=== PATIENT | female | born 1985 | race Caucasian/White ===

== ENCOUNTER 2017-06-09 11:09 | Emergency (ER) | payer OTHER ==
[~2017-06-09] VITALS: Ht 157.4 cm; Wt 104.3 kg
[~2017-06-09 11:09] MED LIST: ATIVAN1 MG PO; BACTRIM DS 8001 TA1 PO; BIRTH CONTROL PILLS; BIRTH CONTROL1 EAC1; BUSPAR5 MG PO; CIPROFLOXACIN500 MG PO; CLEOCIN150 MG PO; CLINDAMYCIN HC300 MG PO; DEBROX15 ML OT; EES400 MG PO; EFFEXOR75 MG PO; FLONASE ALLERG9.9 ML NS; HYDROCODONE BIT1 T11 PO; IBU-8800 MG PO; IBU800 M1 PO; KETOROLAC10 MG PO; LATU40TA PO; LOMOTIL 0.025 M1 TA1 PO; MOTRIN,RUFEN800 MG PO; MULTIVITAMIN1 TA1 PO; Motrin,Rufen800 MG PO; NAPROSYN500 MG PO; NKHM; PHENERGAN25 M1 PO; POLYTRIM 1000010 ML OPH; PRENATAL1 TA3 PO; PRENAVITE1 TA4 PO; PROTONIX40 MG PO; PROZAC10 MG PO; PROZAC20 MG PO; PROZAC40 M1 PO; Peridex 473 ML473 ML PO; REMERON15 M2 PO; SEROQUEL300 MG PO; TORADOL10 MG PO; TRAMADOL HCL50 MG PO; TRAZODONE HYDR300 MG PO; TRAZODONE50 MG PO; ULTRAM50 MG PO; VISTARIL25 MG PO; VISTARIL50 MG PO; ZANAFLEX4 M2 PO; ZITHROMAX250 MG PO; ZOFRAN ODT4 MG SL; ZOFRAN4 MG PO; ZOLOFT25 MG PO; ZOLOFT50 MG PO
[2017-06-09 12:02] LABS: BILIRUBIN NEGATIVE (NEGATIVE); BLOOD NEGATIVE (NEGATIVE); CLARITY CLEAR (CLEAR); COLOR YELLOW (YELLOW); GLUCOSE NEGATIVE (NEGATIVE); KETONE NEGATIVE (NEGATIVE); LEUKO ESTERASE NEGATIVE (NEGATIVE); NITRITE NEGATIVE (NEGATIVE); SPECIFIC GRAVITY 1.015 (1.005-1.030); UROBILINOGEN 0.2 E.U./dl (0.2-1.0)
[2017-06-09 12:14] LABS: URINE AMPHETAMINES < 1000 (1000ng/ml); URINE BARBITURATES < 200 (200ng/ml); URINE BENZODIAZEPINES < 200 (200ng/ml); URINE CANNABINOIDS (THC) < 50 (50ng/ml); URINE COCAINE < 300 (300ng/ml); URINE METHADONE < 300 (300ng/ml); URINE OPIATES < 300 (300ng/ml); URINE PHENCYCLIDINE < 25 (25ng/ml)
[2017-06-09] MEDS ORDERED: ATARAX,VISTARIL50 MG PO (12:49)
== END 2017-06-09 13:10 | disposition home or self-care (01) ==
LOC: ED 11:09
PROVIDERS: Emergency Medicine
DX: F41.9 Anxiety disorder, unspecified (principal); R45.1 Restlessness and agitation; R07.89 Other chest pain; J45.909 Unspecified asthma, uncomplicated; F17.200 Nicotine dependence, unspecified, uncomplicated; Z88.0 Allergy status to penicillin; Z88.8 Allergy status to other drugs, medicaments and biological substances; Z79.899 Other long term (current) drug therapy

== ENCOUNTER 2017-07-17 06:46 | Emergency (ER) | payer OTHER ==
[~2017-07-17] VITALS: Ht 157.4 cm; Wt 108.9 kg
[~2017-07-17 06:46] MED LIST changes: +ATARAX,VISTARIL50 MG PO
[2017-07-17 07:27] LABS: BASO % 0.2 % (0.0-1.0); EOS # 0.2 10*3/uL (0.0-0.4); EOS % 1.9 % (1.0-4.0); HEMATOCRIT 38.1 % (37.0-47.0); HEMOGLOBIN 12.5 g/dl (12.0-16.0); LYMPH # 3.6 10*3/uL (1.3-4.4); LYMPH % 29.1 % (27.0-41.0); MEAN CELL VOLUME 87.2 fl (81.0-99.0); MEAN CORPUSCULAR HGB 28.6 pg (27.0-31.0); MEAN CORPUSCULAR HGB CONC 32.8 g/dl (33.0-37.0); MEAN PLATELET VOLUME 9.6 fl (9.6-12.3); MONO # 0.5 10*3/uL (0.1-1.0); MONO % 4.3 % (3.0-9.0); NEUT # 7.8 10*3/uL (2.3-7.9); NEUT % 64.1 % (47.0-73.0); PLATELET COUNT AUTOMATED 330 10*3/uL (130-400); RED BLOOD COUNT 4.37 10*6/uL (4.10-5.10); RED CELL DISTRI WIDTH 13.1 % (0-14.5); WHITE BLOOD COUNT 12.2 10*3/uL (4.8-10.8)
[2017-07-17 07:44] LABS: ALBUMIN 3.7 gm/dl (3.1-4.5); ALKALINE PHOSPHATASE 67 U/L (45-117); BUN 10 mg/dl (7-24); CHLORIDE 103 mmol/L (98-107); CREATININE 0.55 mg/dL (0.55-1.02); POTASSIUM 3.8 mmol/L (3.5-5.1); SGOT/AST 24 IU/L (3-35); SGPT/ALT 40 U/L (12-78); SODIUM 140 mmol/L (136-145); TOTAL PROTEIN 7.4 gm/dL (6.4-8.2)
[2017-07-17] MEDS ORDERED: ZOFRAN ODT4 MG SL (10:17)
== END 2017-07-17 10:20 | disposition home or self-care (01) ==
LOC: ED 06:46
PROVIDERS: Emergency Medicine
DX: K52.9 Noninfective gastroenteritis and colitis, unspecified (principal); F17.200 Nicotine dependence, unspecified, uncomplicated; Z88.0 Allergy status to penicillin; Z79.899 Other long term (current) drug therapy

== ENCOUNTER 2017-10-07 14:27 | Emergency (ER) | payer OTHER ==
[~2017-10-07] VITALS: Ht 157.4 cm; Wt 117.9 kg
== END 2017-10-07 16:45 | disposition left against medical advice (07) ==
LOC: ED 14:27
DX: R11.2 Nausea with vomiting, unspecified (principal); R10.9 Unspecified abdominal pain; Z53.21 Procedure and treatment not carried out due to patient leaving prior to being seen by health care provider

== ENCOUNTER 2017-10-16 09:22 | Inpatient (IN) | payer OTHER ==
[~2017-10-16] VITALS: Ht 160 cm; Wt 122.6 kg
--- NOTE | ~2017-10-16 | EKG ---
[place], [place] ELECTROCARDIOGRAM REPORT NAME: GURPREET HOPKINS UNIT #: [id number] ROOM: 512 DOCTOR: SAFIA TERAN MD,LESLYE BIRTHDATE: [birth year] DOS: 10/18/2017 TIME: Done at 2:24 p.m. Normal sinus rhythm noted. Heart rate of 92 beats per minute, otherwise normal electrocardiogram. LESLYE BAIG MD CM:EKGRPT:ELECTROCARDIOGRAM REPORT 1723 [id number] LESLYE TERAN MD
--- NOTE | ~2017-10-16 | PR ---
[place], [place] PROGRESS NOTE NAME: GURPREET HOPKINS [facility] #: [id number] UNIT #: [id number] ROOM: 512 DOCTOR: SAFIA TERAN MD,LESLYE BIRTHDATE: [birth year] DOS: 10/19/2017 SUBJECTIVE: The patient has been noted comfortable at this time without any acute distress. She was noted with similar symptoms of severe nonproductive cough. The patient has chest pain in the lower rib cage. Shortness of breath. The patient has been noted the same wheezing was also described persistent with chest tightness as well. She denies symptoms of nausea, vomiting, diarrhea, abdominal pain. Denies symptoms of hemoptysis. Denies any abnormal skin rashes or edema of the lower extremities. OBJECTIVE: VITAL SIGNS: For the patient which has been recorded shows a normal temperature, respiratory rate 18-20, heart rate of 107-98, blood pressure 130/76-143/89, pulse, oxygen saturation of the patient on room air 97% saturation. Severe chronic obesity. HEENT: Head was atraumatic. Eyes nonicterus. Decreased posterior pharyngeal space, high tongue base crowding soft tissue structures. NECK: Supple. CARDIOVASCULAR: S1, S2 audible. LUNGS: Moderate general reduction in breath sounds. Diffuse expiratory wheezing, no crackles. ABDOMEN: Noted chronic severe obesity. Bowel sounds present. EXTREMITIES: The patient noted without edema, clubbing, cyanosis. CENTRAL NERVOUS SYSTEM: Nonfocal. SKIN: No lesions or rashes. LABORATORY DATA: CMP this morning, normal BUN and creatinine. Glucose was normal. Remaining CMP was normal. CBC, WBC count 19.4, hemoglobin and hematocrit normal, platelet count was normal. IMPRESSION: 1. The patient with acute exacerbation of bronchial asthma. 2. Severe acute bronchitis, persistent mucous infection, mucus plug noted in the major airways. 3. Leukocytosis. The patient multifactorial, partly induced by the corticosteroids 4. Chronic obesity as well. PLAN OF MANAGEMENT: Continue the current noninvasive medical management. For the management of the cough for this patient, continue corticosteroids current dose. Continuation of bronchodilators and oxygen supplementation. Continue nicotine replacement patches as well. Bronchoscopy was assessed patient was planned to be done in the morning. Risk and benefits of the procedure has been discussed with the patient previously. She is agreeable for the procedure. N.p.o. past midnight status has been achieved from midnight tonight for the bronchoscopy tomorrow morning. [place], [place] PROGRESS NOTE NAME: MARBELLAGURPREET FERGUSON Mandy UNIT #: [id number] ROOM: 512 DOCTOR: LESLYE RAMOS MD BIRTHDATE: [birth year] LESLYE BAIG MD CM:PNTERRENCE [id number] LESLYE TERAN MD 10/19/17 1609 interface
--- NOTE | ~2017-10-16 | CON ---
[place], [place] REPORT OF CONSULTATION NAME: GURPREET HOPKINS [facility] #: [id number] UNIT #: [id number] ROOM: 512 DOCTOR: LESLYE RAMOS MD BIRTHDATE: [birth year] DOS: 10/18/2017 CONSULTATION REQUESTED BY: Hospitalist service. REASON FOR CONSULTATION: Nonresolving respiratory symptoms. HISTORY OF PRESENT ILLNESS: This is a 32-year-old white female who has been diagnosed with a history of bronchial asthma several years ago, took the medication for about a year after diagnosis was established, and after that did not require any regular medication. She presented to the hospital and admitted because of the increased respiratory symptom which has been ongoing since the end of September 2017. The symptoms had been noted variably, but noted later with gradual progression with symptoms of increased shortness of breath with excessive chest congestion, inability to expectorate sputum. Chest pain was not noted with the patient's severe cough that had remains episodic under the rib cage. The patient denies symptoms of hemoptysis. Wheezing was also noted intermittently. The patient stated at work also require used to work going to the freeze that has been also exacerbating her symptoms. REVIEW OF SYSTEMS: CONSTITUTIONAL: Fatigue and tiredness noted without symptoms of fever or chills. EYES: Denies any burning, redness, or tenderness. . No sore throat, hoarseness, sore throat noted with current worsening because of excessive cough. Denies any epistaxis. CARDIOVASCULAR: Denies anginal pain, edema, pain, lower extremity. GASTROINTESTINAL: Dysphagia, nausea, vomiting, diarrhea, abdominal pain, hematemesis, melena. GENITOURINARY SYMPTOMS: Dysuria, suprapubic pain, hematuria. MUSCULOSKELETAL: Without any pain. SKIN: No lesions or rashes. CENTRAL NERVOUS SYSTEM: Denies any diplopia, headache or syncopal episodes. Remaining systems were reviewed. They were noted all negative. PAST MEDICAL HISTORY: 1. The patient was essentially noted with chronic obesity. 2. Allergic rhinitis. 3. Anxiety disorder. 4. Bronchial asthma, not treated at this time. PAST SURGICAL HISTORY: Reported: 1. Tonsillectomy. 2. Removal of pilonidal cyst. SOCIAL HISTORY: The patient is currently not , lives at home with her fiance. She has been known with history of tobacco use, half a pack of cigarettes per day. She does not have any children. DRUG ALLERGIES: Reported as allergy: [place], [place] REPORT OF CONSULTATION NAME: GURPREET HOPKINS UNIT #: [id number] ROOM: 512 DOCTOR: SAFIA TERAN MD,LESLYE BIRTHDATE: [birth year] 1. PENICILLIN. 2. FLEXERIL. HOME MEDICATIONS: None used. PHYSICAL EXAMINATION: GENERAL: A 32-year-old female who has been currently sitting on the bed noted with coughing, intermittently without any sputum expectoration. Height of 5 feet 3 inches, weight of 270 pounds, BMI 47.9 consistent with severe morbid obesity. VITAL SIGNS: The patient since admission normal temperature, respiratory rate 18-20, heart rate of 113-106, sinus tachycardia, blood pressure 126/77 to 132/81. Pulse oxygen saturation on room air was 96% saturation. HEENT: Head was atraumatic. Eye nonicterus. NECK: Supple. Decreased posterior pharyngeal space, high tongue base crowding the soft tissue structures. LUNGS: Noted with diffuse reduction in breath sounds with moderate expiratory wheezing without any crackles. ABDOMEN: Noted soft with obesity. Bowel sounds present. No tenderness. EXTREMITIES: Without any edema, clubbing, cyanosis. CENTRAL NERVOUS SYSTEM: The patient noted without any gross focal deficit. Cranial nerves 2-12 intact. SKIN: Visible skin. No lesions or rashes. MUSCULOSKELETAL: No deformities noted. LABORATORY DATA: CBC on 10/16/2017 normal. CBC noted on admission. The CMP on 10/16/2017, the patient noted as normal CMP. Influenza A and rapid antigen was noted negative. CBC that was done yesterday, WBC count 19.6, remaining CBC normal. CBC this morning: WBC count 24.7 and otherwise CBC remains normal. BMP: Glucose 148. Otherwise, remains normal. Chest x-ray just 1 view, which was done in the Emergency Room, the patient was essentially noted without any acute abnormalities. IMPRESSION: 1. The patient has been noted with ongoing acute exacerbation of bronchial asthma, mostly started after viral infection suspected with thick mucus impaction of major airways. Not responding to treatment. 2. Increased leukocytosis most likely resulting from the corticosteroids. 3. Sinus tachycardia secondary to acute exacerbation of bronchial asthma as well. 4. Chronic morbid obesity as well. PLAN OF TREATMENT: Continue current dose of corticosteroids. Monitor leukocytosis. No change in antibiotic will be necessary. Bronchodilators. The bronchoscopy of the chest to be done on Friday morning after the schedule availability. In the meantime, continue bronchodilators. Other supportive therapy, plan of management. The continuation of the Mucinex and the flutter valve use. Supportive therapy, plan of management, other care. [place], [place] REPORT OF CONSULTATION NAME: GURPREET HOPKINS UNIT #: [id number] ROOM: 512 DOCTOR: SAFIA TERAN MD,LESLYE BIRTHDATE: [birth year] LESLYE BAIG MD CM:CONSTR:REPORT OF CONSULTATION 1756 10/19/17 0149 interface
--- NOTE | ~2017-10-16 | PR ---
[place], [place] PROGRESS NOTE NAME: GURPREET HOPKINS UNIT #: [id number] ROOM: 512 DOCTOR: SAFIA TERAN MD,LESLYE BIRTHDATE: [birth year] DOS: 10/20/2017 SUBJECTIVE: The patient has been noted comfortable at this time without any changes. Continued to have cough of the patient, which remained nonproductive in exacerbation with chest pain. The patient has not been noted symptoms of hemoptysis. She is n.p.o. past midnight for bronchoscopy, which was planned for today. She was also noted with continuous wheezing as well and shortness of breath with exertion. She was continued on intravenous steroids and bronchodilators. Denies symptoms of nausea, vomiting, diarrhea, or abdominal pain. Denies any headache, diplopia, any abnormal skin rashes, or edema of the lower extremities. OBJECTIVE: VITAL SIGNS: For the patient shows a normal temperature. The respiratory rate of the patient recorded as 24-20. Heart rate of 94-107, and blood pressure 140/84-153/90. HEENT: Examination shows no acute change. NECK: Supple. CARDIOVASCULAR: S1, S2 is audible. LUNGS: Examination of the lungs, the patient was noted without any crackles or expiratory wheezing. The patient remains persistent bilaterally. ABDOMEN: Soft, nontender. EXTREMITIES: The patient was noted without any edema, clubbing, cyanosis, or chronic obesity. SKIN: No lesions or rashes. MUSCULOSKELETAL: No deformities. LABORATORY DATA: The CBC of this morning, WBC count 17.8, remaining CBC was normal except platelet count mildly elevated at 425,000. BMP of this morning, normal. Urine test was noted as negative. IMPRESSION: The patient with persistent acute severe exacerbation of bronchial asthma, acute tracheobronchitis, suspected mucus impaction, major airway bronchoscopy, severe chronic obesity as well, and mild hyperglycemia secondary to corticosteroids. PLAN OF TREATMENT: Proceed with the bronchoscopy of the patient as planned. No changes in the treatment of the patient otherwise will be necessary. If any changes necessary in treatment, we will be ordered accordingly. Other supportive therapy, plan of management, and care plan. Usual treatment. [place], [place] PROGRESS NOTE NAME: GURPREET HOPKINS UNIT #: [id number] ROOM: 512 DOCTOR: LESLYE RAMOS MD BIRTHDATE: [birth year] LESLYE BAIG MD CM:PNTRANS 1258 [id number] LESLYE TERAN MD 10/20/17 2155 interface
--- NOTE | ~2017-10-16 | PROC NOTE ---
[place], [place] PROCEDURE NOTE NAME: GURPREET HOPKINS UNIT #: [id number] ROOM: 512 DOCTOR: SAFIA TERAN MD,LESLYE BIRTHDATE: [birth year] DOS: 10/20/2017 PREOPERATIVE DIAGNOSES: Severe nonresolving cough, leukocytosis as well as wheezing with maximum medical therapy. POSTOPERATIVE DIAGNOSES: Removal of multiple large plugs and mucus endobronchial tree bilaterally, endobronchial obstructive lesions. FINDINGS: Tracheobronchitis. COMPLICATIONS: None. PROCEDURE DESCRIPTION: Informed consent obtained. She was brought to the OR and placed in supine position. Conscious sedation administered by the Anesthesia Department. After achieving proper sedation, airway introduced into the mouth. Bronchoscope advanced to the airway into laryngeal area. Epiglottis and vocal cords were seen. Bronchoscope advanced to the vocal cord and tracheal lumen. The patient was identified and noted moderate amount of thick mucus secretion with only minimal purulent secretions suctioned out at faustina level. Faustina noted sharp. Right upper, right middle, right lower, left upper, lingula, and lower lobe bronchi were all examined. Moderate to large plugs and mucus present in endobronchial tree bilaterally which was suctioned with normal saline wash, sent for culture. Procedure was tolerated by the patient without any complications. Postoperative finding were discussed with the patient's family members. Any addition of changes in treatment will be necessary after the bronchoscopy will be ordered accordingly. At this time, no major changes will be needed. LESLYE BAIG MD CM:PROCNOTE:PROCEDURE NOTE 1301 2153 LESLYE TERAN MD
--- NOTE | ~2017-10-16 | PR ---
[place], [place] PROGRESS NOTE NAME: [facility]KINS [facility] [id number] UNIT #: [id number] ROOM: 512 DOCTOR: SAFIA TERAN MD,LESLYE BIRTHDATE: [birth year] DOS: 10/21/2017 PULMONARY FOLLOWUP ADDENDUM NOTE SUBJECTIVE: The patient was independently seen and examined with [id number] encounter, history was confirmed, and the labs were reviewed. Any changes in the patient's medical management, which were necessary was personally made for today's visit. Note done by the biomedical engineering internship was approved. The patient has a bronchoscopy done yesterday. The patient with significant resolution of tachycardia, symptoms of shortness breath and cough still noted with some hoarseness as well. Auscultation of chest noted clear of any wheezing. Abdomen is soft and obese. The culture preliminary of bronchial washing was noted as normal tonny. PLAN OF TREATMENT: The patient could be considered for home discharge on tapering dose of prednisone, bronchodilators, abstinence of tobacco use. Outpatient followup post-discharge. LESLYE BAIG MD CM:PNTRANS 1302 40 LESLYE TERAN MD 10/21/171940 interface
--- NOTE | ~2017-10-16 | PR ---
[place], [place] PROGRESS NOTE NAME: GURPREET HOPKINS UNIT #: [id number] ROOM: [facility] DOCTOR: FELIPE VAIL DO BIRTHDATE: [birth year] DOS: 10/21/2017 SUBJECTIVE: The patient is seen and examined at bedside. The patient is sitting upright in bed in no acute distress. The patient had multiple questions about her new diagnosis of acute asthma secondary to viral infection. All questions were answered by Dr. Baig at bedside and patient was satisfied with the information provided. The patient continues to improve clinically, has no new complaints at this time, continues to have improved breathing, shortness of breath resolving. No new complaints at this time. OBJECTIVE: VITAL SIGNS: Temperature 97.6, pulse is 90, respirations 20, blood pressure 140/75, pulse ox is 96% on room air. GENERAL APPEARANCE: The patient has no acute distress, alert and oriented times 3. HEENT: Eyes are clear. No injection. Nares are patent. Mucous membranes are moist. NECK: Supple, nontender. CARDIOVASCULAR: Regular rate and rhythm, no murmurs, gallops or rubs. PULMONARY: Without crackles, expiratory wheezing or rhonchi. ABDOMEN: Soft, nontender. EXTREMITIES: No edema, clubbing, or cyanosis. SKIN: No lesions or rashes. MUSCULOSKELETAL: No deformities. LABORATORY DATA: White count 21.3, hemoglobin 13.5, hematocrit 40.6, platelet count 425. BMP was normal except for mildly elevated glucose of 183. Serology for acid fast staining is pending. Bronchial cultures remain negative. Flu negative. Urine culture is negative. Throat swab for strep is negative. C. diff negative. IMPRESSION AND PLAN: Persistent acute severe exacerbation of bronchial asthma secondary to tracheobronchitis with mucus impactions. The patient continues to improve clinically. The patient is clear from pulmonary standpoint to be discharged and continue her pulmonary care outpatient. No changes in current plan at this time. We will continue to follow the patient. FELIPE VAIL [place], [place] PROGRESS NOTE NAME: GURPREET HOPKINS UNIT #: [id number] ROOM: [facility] DOCTOR: FELIPE VAIL DO BIRTHDATE: [birth year] LESLYE BAIG MD CM:PNTERRENCE 1425 1605 FELIPE VAIL DO 10/21/17 1605 interface
[2017-10-16 09:41] VITALS: BP 167/103
[2017-10-16 10:25] LABS: BASO # 0.1 10*3/uL (0.0-0.1); BASO % 0.5 % (0.0-1.0); EOS # 0.2 10*3/uL (0.0-0.4); EOS % 1.9 % (1.0-4.0); HEMATOCRIT 40.9 % (37.0-47.0); HEMOGLOBIN 13.9 g/dl (12.0-16.0); LYMPH # 4.7 10*3/uL (1.3-4.4); MEAN CELL VOLUME 85.2 fl (81.0-99.0); MEAN PLATELET VOLUME 9.5 fl (9.6-12.3); MONO # 0.6 10*3/uL (0.1-1.0); MONO % 6.2 % (3.0-9.0); NEUT # 4.8 10*3/uL (2.3-7.9); NEUT % 46.3 % (47.0-73.0); PLATELET COUNT AUTOMATED 368 10*3/uL (130-400); RED CELL DISTRI WIDTH 12.6 % (0-14.5); WHITE BLOOD COUNT 10.4 10*3/uL (4.8-10.8)
[2017-10-16 10:41] LABS: ALBUMIN 3.5 gm/dl (3.1-4.5); ALKALINE PHOSPHATASE 70 U/L (45-117); BUN 8 mg/dl (7-24); CHLORIDE 105 mmol/L (98-107); CREATININE 0.65 mg/dL (0.55-1.02); POTASSIUM 3.8 mmol/L (3.5-5.1); SGOT/AST 25 IU/L (3-35); SGPT/ALT 56 U/L (12-78); SODIUM 140 mmol/L (136-145); TOTAL PROTEIN 7.4 gm/dL (6.4-8.2)
[2017-10-16 12:40] VITALS: BP 137/82
[2017-10-16 12:40] LABS: BILIRUBIN NEGATIVE (NEGATIVE); BLOOD NEGATIVE (NEGATIVE); CLARITY SL CLOUDY (CLEAR); COLOR STRAW (YELLOW); GLUCOSE NEGATIVE (NEGATIVE); KETONE NEGATIVE (NEGATIVE); LEUKO ESTERASE NEGATIVE (NEGATIVE); NITRITE NEGATIVE (NEGATIVE); PH 6.5 (5.0-9.0); SPECIFIC GRAVITY <= 1.005 (1.005-1.030); UROBILINOGEN 0.2 E.U./dl (0.2-1.0)
[2017-10-16 12:51] LABS: BACTERIA 1+
[2017-10-16 16:00] VITALS: BP 135/86
[2017-10-16 20:00] VITALS: BP 116/72
[2017-10-17] VITALS: BP 103/38; BP 137/77
[2017-10-17 06:10] LABS: BASO % 0.1 % (0.0-1.0); HEMATOCRIT 37.5 % (37.0-47.0); HEMOGLOBIN 12.7 g/dl (12.0-16.0); LYMPH # 2.1 10*3/uL (1.3-4.4); LYMPH % 10.7 % (27.0-41.0); MEAN CELL VOLUME 85.6 fl (81.0-99.0); MEAN CORPUSCULAR HGB CONC 33.9 g/dl (33.0-37.0); MEAN PLATELET VOLUME 9.9 fl (9.6-12.3); MONO # 0.2 10*3/uL (0.1-1.0); MONO % 1.2 % (3.0-9.0); NEUT # 17.1 10*3/uL (2.3-7.9); PLATELET COUNT AUTOMATED 404 10*3/uL (130-400); RED BLOOD COUNT 4.38 10*6/uL (4.10-5.10); RED CELL DISTRI WIDTH 12.7 % (0-14.5); WHITE BLOOD COUNT 19.6 10*3/uL (4.8-10.8)
[2017-10-17 06:41] LABS: BUN 8 mg/dl (7-24); CHLORIDE 104 mmol/L (98-107); CHOLESTEROL 163 mg/dL (<200); CREATININE 0.66 mg/dL (0.55-1.02); PHOSPHOROUS 2.1 mg/dL (2.5-4.9); POTASSIUM 3.7 mmol/L (3.5-5.1); SODIUM 139 mmol/L (136-145); TRIGLYCERIDES 56 mg/dl (<150); VLDL CHOLESTEROL 11 mg/dL (6-40)
[2017-10-17 06:50] LABS: HDL CHOLESTEROL 52 mg/dl (40-60); LDL CHOLESTEROL 100 mg/dL (9-159); THYROID STIM HORMONE (HS) 0.666 uIU/ml (0.358-4.75)
[2017-10-17 08:00] VITALS: BP 140/78
[2017-10-17 12:00] VITALS: BP 127/83
[2017-10-17 14:13] LABS: VITAMIN D, 25-HYDROXY 17.9 ng/mL (30-100)
[2017-10-17 16:00] VITALS: BP 121/59
[2017-10-17 20:00] VITALS: BP 118/68
[2017-10-18] VITALS: BP 126/74
[2017-10-18 00:39] VITALS: BP 126/74
[2017-10-18 08:00] VITALS: BP 134/64
[2017-10-18 10:27] LABS: BASO % 0.1 % (0.0-1.0); HEMATOCRIT 37.1 % (37.0-47.0); HEMOGLOBIN 12.3 g/dl (12.0-16.0); LYMPH # 3.6 10*3/uL (1.3-4.4); LYMPH % 14.6 % (27.0-41.0); MEAN CELL VOLUME 86.5 fl (81.0-99.0); MEAN CORPUSCULAR HGB 28.7 pg (27.0-31.0); MEAN CORPUSCULAR HGB CONC 33.2 g/dl (33.0-37.0); MEAN PLATELET VOLUME 9.6 fl (9.6-12.3); MONO # 0.9 10*3/uL (0.1-1.0); MONO % 3.4 % (3.0-9.0); PLATELET COUNT AUTOMATED 405 10*3/uL (130-400); RED BLOOD COUNT 4.29 10*6/uL (4.10-5.10); RED CELL DISTRI WIDTH 13.1 % (0-14.5); WHITE BLOOD COUNT 24.7 10*3/uL (4.8-10.8)
[2017-10-18 10:47] LABS: BUN 13 mg/dl (7-24); CHLORIDE 104 mmol/L (98-107); CREATININE 0.64 mg/dL (0.55-1.02); SODIUM 138 mmol/L (136-145)
[2017-10-18 12:00] VITALS: BP 132/81
[2017-10-18 16:00] VITALS: BP 126/77
[2017-10-18 20:00] VITALS: BP 140/84
[2017-10-18] MEDS ORDERED: ZANTAC 150150 MG PO (22:23)
[2017-10-19] VITALS: BP 124/76
[2017-10-19 06:21] LABS: BASO % 0.1 % (0.0-1.0); HEMATOCRIT 38.8 % (37.0-47.0); HEMOGLOBIN 12.7 g/dl (12.0-16.0); LYMPH # 3.1 10*3/uL (1.3-4.4); LYMPH % 15.9 % (27.0-41.0); MEAN CELL VOLUME 86.8 fl (81.0-99.0); MEAN CORPUSCULAR HGB 28.4 pg (27.0-31.0); MEAN CORPUSCULAR HGB CONC 32.7 g/dl (33.0-37.0); MEAN PLATELET VOLUME 9.7 fl (9.6-12.3); MONO # 0.5 10*3/uL (0.1-1.0); MONO % 2.5 % (3.0-9.0); NEUT # 15.5 10*3/uL (2.3-7.9); NEUT % 80.2 % (47.0-73.0); PLATELET COUNT AUTOMATED 421 10*3/uL (130-400); RED BLOOD COUNT 4.47 10*6/uL (4.10-5.10); RED CELL DISTRI WIDTH 13.1 % (0-14.5); WHITE BLOOD COUNT 19.4 10*3/uL (4.8-10.8)
[2017-10-19 06:36] LABS: ALBUMIN 3.5 gm/dl (3.1-4.5); ALKALINE PHOSPHATASE 66 U/L (45-117); BUN 14 mg/dl (7-24); CHLORIDE 105 mmol/L (98-107); POTASSIUM 4.3 mmol/L (3.5-5.1); SGOT/AST 13 IU/L (3-35); SGPT/ALT 42 U/L (12-78); SODIUM 138 mmol/L (136-145); TOTAL PROTEIN 7.3 gm/dL (6.4-8.2)
[2017-10-19 08:00] VITALS: BP 138/76
[2017-10-19 12:00] VITALS: BP 143/89
[2017-10-19 16:00] VITALS: BP 131/80
[2017-10-19 20:00] VITALS: BP 116/79
[2017-10-20] VITALS (11 sets, daily range): BP systolic 110–153; BP diastolic 66–96
[2017-10-20 06:52] LABS: BASO % 0.2 % (0.0-1.0); HEMATOCRIT 38.5 % (37.0-47.0); HEMOGLOBIN 12.8 g/dl (12.0-16.0); LYMPH # 2.9 10*3/uL (1.3-4.4); LYMPH % 16.3 % (27.0-41.0); MEAN CELL VOLUME 86.7 fl (81.0-99.0); MEAN CORPUSCULAR HGB 28.8 pg (27.0-31.0); MEAN CORPUSCULAR HGB CONC 33.2 g/dl (33.0-37.0); MEAN PLATELET VOLUME 9.8 fl (9.6-12.3); MONO # 0.5 10*3/uL (0.1-1.0); MONO % 2.7 % (3.0-9.0); NEUT # 13.9 10*3/uL (2.3-7.9); NEUT % 79.4 % (47.0-73.0); PLATELET COUNT AUTOMATED 425 10*3/uL (130-400); RED BLOOD COUNT 4.44 10*6/uL (4.10-5.10); RED CELL DISTRI WIDTH 12.8 % (0-14.5); WHITE BLOOD COUNT 17.6 10*3/uL (4.8-10.8)
[2017-10-20 07:12] LABS: BUN 18 mg/dl (7-24); CHLORIDE 104 mmol/L (98-107); CREATININE 0.62 mg/dL (0.55-1.02); POTASSIUM 4.4 mmol/L (3.5-5.1); SODIUM 139 mmol/L (136-145)
[2017-10-21] VITALS: BP 151/89
[2017-10-21 08:00] VITALS: BP 137/84
[2017-10-21 08:18] LABS: HEMATOCRIT 40.6 % (37.0-47.0); HEMOGLOBIN 13.5 g/dl (12.0-16.0); MEAN CELL VOLUME 87.1 fl (81.0-99.0); MEAN CORPUSCULAR HGB CONC 33.3 g/dl (33.0-37.0); MEAN PLATELET VOLUME 9.6 fl (9.6-12.3); PLATELET COUNT AUTOMATED 425 10*3/uL (130-400); RED BLOOD COUNT 4.66 10*6/uL (4.10-5.10); RED CELL DISTRI WIDTH 12.8 % (0-14.5); WHITE BLOOD COUNT 21.3 10*3/uL (4.8-10.8)
[2017-10-21 08:32] LABS: BUN 21 mg/dl (7-24); CHLORIDE 102 mmol/L (98-107); CREATININE 0.78 mg/dL (0.55-1.02); SODIUM 138 mmol/L (136-145)
[2017-10-21 09:08] LABS: ATYPICAL LYMPHS 3 % (0-0); PLATELET SUFFICIENCY HIGH (NORMAL); TOTAL CELLS COUNTED 100 #CELLS
[2017-10-21 12:00] VITALS: BP 140/75
[2017-10-21 13:08] LABS: ACID FAST SMEAR Negative (.); ACID FAST SPEC PROCESSING Concentration (.)
[2017-10-21] MEDS ORDERED: ZITHROMAX500 MG PO (14:37)
[2017-10-21] MEDS ORDERED: PREDNISONE10 MG PO (14:37)
== END 2017-10-21 15:18 | disposition home or self-care (01) | DRG 871 ==
LOC: ED 09:22 → 5E 12:11 → 4NE 12:11 → EDHOLD 12:11 → 4NE 12:28 → 5E 10-17 12:02
PROVIDERS: Emergency Medicine; Internal Medicine; Internal Medicine Critical Care Medicine; Nurse Practitioner; Student in an Organized Health Care Education/Training Program
DX: A41.9 Sepsis, unspecified organism (principal); J18.9 Pneumonia, unspecified organism; D70.9 Neutropenia, unspecified; E66.01 Morbid (severe) obesity due to excess calories; J44.0 Chronic obstructive pulmonary disease with (acute) lower respiratory infection; J44.1 Chronic obstructive pulmonary disease with (acute) exacerbation; Z68.42 Body mass index [BMI] 45.0-49.9, adult; D72.820 Lymphocytosis (symptomatic); I10 Essential (primary) hypertension; Z72.0 Tobacco use; F41.9 Anxiety disorder, unspecified; Z91.09 Other allergy status, other than to drugs and biological substances; J04.0 Acute laryngitis; Z88.0 Allergy status to penicillin; F17.200 Nicotine dependence, unspecified, uncomplicated; Z72.89 Other problems related to lifestyle; Z82.49 Family history of ischemic heart disease and other diseases of the circulatory system; Z83.3 Family history of diabetes mellitus; Z80.8 Family history of malignant neoplasm of other organs or systems; Z83.6 Family history of other diseases of the respiratory system; Z88.9 Allergy status to unspecified drugs, medicaments and biological substances; Z71.6 Tobacco abuse counseling

== ENCOUNTER 2018-03-15 04:20 | Emergency (ER) | payer SELFPAY ==
[~2018-03-15] VITALS: Ht 160 cm; Wt 122.5 kg
[~2018-03-15 04:20] MED LIST changes: +PREDNISONE10 MG PO; +ZANTAC 150150 MG PO; +ZITHROMAX500 MG PO
[2018-03-15] MEDS ORDERED: NORCO 5-325 TA1 EACH PO (05:48)
== END 2018-03-15 06:14 | disposition home or self-care (01) ==
LOC: ED 04:20
DX: S62.101A Fracture of unspecified carpal bone, right wrist, initial encounter for closed fracture (principal); F17.200 Nicotine dependence, unspecified, uncomplicated; I10 Essential (primary) hypertension; Z88.0 Allergy status to penicillin; Z88.8 Allergy status to other drugs, medicaments and biological substances; Z90.89 Acquired absence of other organs; Z98.890 Other specified postprocedural states; Z79.899 Other long term (current) drug therapy; W10.8XXA Fall (on) (from) other stairs and steps, initial encounter; Y93.89 Activity, other specified; Y92.098 Other place in other non-institutional residence as the place of occurrence of the external cause; Y99.9 Unspecified external cause status

== ENCOUNTER 2018-04-10 08:42 | Emergency (ER) | payer SELFPAY ==
[~2018-04-10] VITALS: Ht 157.4 cm; Wt 106.6 kg
[~2018-04-10 08:42] MED LIST changes: +NORCO 5-325 TA1 EACH PO
[2018-04-10] MEDS ORDERED: Tobrex Ophth S2.5 ML OPH (09:12)
== END 2018-04-10 09:15 | disposition home or self-care (01) ==
LOC: ED 08:42
DX: S05.01XA Injury of conjunctiva and corneal abrasion without foreign body, right eye, initial encounter (principal); I10 Essential (primary) hypertension; F17.200 Nicotine dependence, unspecified, uncomplicated; Z98.890 Other specified postprocedural states; Z88.0 Allergy status to penicillin; Z88.8 Allergy status to other drugs, medicaments and biological substances; T15.91XA Foreign body on external eye, part unspecified, right eye, initial encounter; Y93.89 Activity, other specified; Y92.89 Other specified places as the place of occurrence of the external cause; Y99.8 Other external cause status

== ENCOUNTER 2018-04-28 07:30 | Emergency (ER) | payer SELFPAY ==
[~2018-04-28] VITALS: Ht 157.4 cm; Wt 113.4 kg
[~2018-04-28 07:30] MED LIST changes: +Tobrex Ophth S2.5 ML OPH
[2018-04-28 08:13] LABS: BASO # 0.1 10*3/uL (0.0-0.1); BASO % 0.5 % (0.0-1.0); EOS # 0.2 10*3/uL (0.0-0.4); EOS % 1.7 % (1.0-4.0); HEMATOCRIT 39.9 % (37.0-47.0); HEMOGLOBIN 12.9 g/dl (12.0-16.0); LYMPH # 4.1 10*3/uL (1.3-4.4); LYMPH % 39.4 % (27.0-41.0); MEAN CELL VOLUME 87.9 fl (81.0-99.0); MEAN CORPUSCULAR HGB 28.4 pg (27.0-31.0); MEAN CORPUSCULAR HGB CONC 32.3 g/dl (33.0-37.0); MEAN PLATELET VOLUME 9.4 fl (9.6-12.3); MONO # 0.6 10*3/uL (0.1-1.0); NEUT # 5.4 10*3/uL (2.3-7.9); NEUT % 52.2 % (47.0-73.0); PLATELET COUNT AUTOMATED 328 10*3/uL (130-400); RED BLOOD COUNT 4.54 10*6/uL (4.10-5.10); RED CELL DISTRI WIDTH 13.3 % (0-14.5); WHITE BLOOD COUNT 10.4 10*3/uL (4.8-10.8)
[2018-04-28 08:27] LABS: BILIRUBIN NEGATIVE (NEGATIVE); BLOOD TRACE-INTACT (NEGATIVE); CLARITY CLEAR (CLEAR); COLOR YELLOW (YELLOW); GLUCOSE NEGATIVE (NEGATIVE); KETONE NEGATIVE (NEGATIVE); LEUKO ESTERASE NEGATIVE (NEGATIVE); NITRITE NEGATIVE (NEGATIVE); PH 8.5 (5.0-9.0); UROBILINOGEN 0.2 E.U./dl (0.2-1.0)
[2018-04-28 08:31] LABS: ALBUMIN 3.8 gm/dl (3.1-4.5); ALKALINE PHOSPHATASE 60 U/L (45-117); BUN 8 mg/dl (7-24); CHLORIDE 107 mmol/L (98-107); CREATININE 0.56 mg/dL (0.55-1.02); LIPASE 93 U/L (73-393); SGOT/AST 18 IU/L (3-35); SGPT/ALT 33 U/L (12-78); SODIUM 141 mmol/L (136-145); TOTAL PROTEIN 7.1 gm/dL (6.4-8.2)
[2018-04-28 08:34] LABS: BETA-HCG, QUANT < 1.0 mIU/mL (1-3)
[2018-04-28] MEDS ORDERED: PHENERGAN25 M3 PO (09:02)
== END 2018-04-28 09:15 | disposition home or self-care (01) ==
LOC: ED 07:30
PROVIDERS: Emergency Medicine
DX: R11.2 Nausea with vomiting, unspecified (principal); F17.200 Nicotine dependence, unspecified, uncomplicated; I10 Essential (primary) hypertension; Z88.0 Allergy status to penicillin; Z90.89 Acquired absence of other organs; Z88.8 Allergy status to other drugs, medicaments and biological substances

== ENCOUNTER 2018-05-10 21:27 | Emergency (ER) | payer SELFPAY ==
[~2018-05-10] VITALS: Ht 157.4 cm; Wt 113.4 kg
[~2018-05-10 21:27] MED LIST changes: +PHENERGAN25 M3 PO
[2018-05-10] MEDS ORDERED: IBUPROFEN600 MG PO (23:05)
== END 2018-05-10 23:46 | disposition home or self-care (01) ==
LOC: ED 21:27
DX: S63.501A Unspecified sprain of right wrist, initial encounter (principal); Z88.0 Allergy status to penicillin; Z88.8 Allergy status to other drugs, medicaments and biological substances; W10.9XXA Fall (on) (from) unspecified stairs and steps, initial encounter; Y93.89 Activity, other specified; Y92.89 Other specified places as the place of occurrence of the external cause; Y99.8 Other external cause status

== ENCOUNTER 2018-06-17 21:54 | Emergency (ER) | payer BC ==
[~2018-06-17] VITALS: Ht 160 cm; Wt 115.7 kg
[~2018-06-17 21:54] MED LIST changes: +IBUPROFEN600 MG PO
[2018-06-17] MEDS ORDERED: Motrin,Rufen800 MG PO (23:06)
[2018-07-07] MEDS ORDERED: PROAIR HFA8.5 GM INH (01:30)
[2018-07-07] MEDS ORDERED: DOXYCYCLINE100 M3 PO (01:30)
[2018-07-07] MEDS ORDERED: MEDROL DOSEPAK4 MG PO (01:30)
== END 2018-06-17 23:33 | disposition home or self-care (01) ==
LOC: ED 21:54
DX: M25.531 Pain in right wrist (principal); M79.644 Pain in right finger(s); F17.200 Nicotine dependence, unspecified, uncomplicated; Z88.0 Allergy status to penicillin; Z88.8 Allergy status to other drugs, medicaments and biological substances

== ENCOUNTER 2018-06-22 17:51 | Emergency (ER) | payer BC ==
[~2018-06-22] VITALS: Ht 160 cm; Wt 113.4 kg
[2018-06-22 18:30] LABS: BASO % 0.4 % (0.0-1.0); EOS # 0.2 10*3/uL (0.0-0.4); HEMATOCRIT 39.1 % (37.0-47.0); HEMOGLOBIN 12.6 g/dl (12.0-16.0); LYMPH # 4.1 10*3/uL (1.3-4.4); LYMPH % 41.7 % (27.0-41.0); MEAN CELL VOLUME 88.7 fl (81.0-99.0); MEAN CORPUSCULAR HGB 28.6 pg (27.0-31.0); MEAN CORPUSCULAR HGB CONC 32.2 g/dl (33.0-37.0); MEAN PLATELET VOLUME 9.7 fl (9.6-12.3); MONO # 0.5 10*3/uL (0.1-1.0); MONO % 4.7 % (3.0-9.0); NEUT # 5.1 10*3/uL (2.3-7.9); PLATELET COUNT AUTOMATED 301 10*3/uL (130-400); RED BLOOD COUNT 4.41 10*6/uL (4.10-5.10); RED CELL DISTRI WIDTH 13.1 % (0-14.5); WHITE BLOOD COUNT 9.9 10*3/uL (4.8-10.8)
[2018-06-22 18:49] LABS: ALBUMIN 3.3 gm/dl (3.1-4.5); ALKALINE PHOSPHATASE 59 U/L (45-117); BUN 9 mg/dl (7-24); CHLORIDE 107 mmol/L (98-107); CREATININE 0.64 mg/dL (0.55-1.02); LIPASE 302 U/L (73-393); POTASSIUM 3.8 mmol/L (3.5-5.1); SGOT/AST 15 IU/L (3-35); SGPT/ALT 31 U/L (12-78); SODIUM 141 mmol/L (136-145); TOTAL PROTEIN 6.8 gm/dL (6.4-8.2)
[2018-06-22 19:38] LABS: BILIRUBIN NEGATIVE (NEGATIVE); BLOOD NEGATIVE (NEGATIVE); CLARITY SL CLOUDY (CLEAR); COLOR YELLOW (YELLOW); GLUCOSE NEGATIVE (NEGATIVE); KETONE NEGATIVE (NEGATIVE); LEUKO ESTERASE NEGATIVE (NEGATIVE); NITRITE NEGATIVE (NEGATIVE); PH 5.5 (5.0-9.0); SPECIFIC GRAVITY >= 1.030 (1.005-1.030); UROBILINOGEN 0.2 E.U./dl (0.2-1.0)
[2018-06-22 19:59] LABS: EPITHELIAL CELLS 18-20; MUCOUS TRACE; RBC 0-2 rbc/hpf (0-2)
[2018-07-07] MEDS ORDERED: PROAIR HFA8.5 GM INH (01:30)
[2018-07-07] MEDS ORDERED: DOXYCYCLINE100 M3 PO (01:30)
[2018-07-07] MEDS ORDERED: MEDROL DOSEPAK4 MG PO (01:30)
== END 2018-06-22 19:46 | disposition home or self-care (01) ==
LOC: ED 17:51
PROVIDERS: Nurse Practitioner Family
DX: A08.4 Viral intestinal infection, unspecified (principal); I10 Essential (primary) hypertension; Z88.0 Allergy status to penicillin; Z88.8 Allergy status to other drugs, medicaments and biological substances

== ENCOUNTER 2018-07-09 10:08 | Inpatient (IN) | payer BC ==
[~2018-07-09] VITALS: Ht 157.5 cm; Wt 120.2 kg
--- NOTE | ~2018-07-09 | CON ---
[place], [place] REPORT OF CONSULTATION NAME: GURPREET HOPKINS UNIT #: [id number] ROOM: 402 DOCTOR: LESLYE RAMOS MD BIRTHDATE: [birth year] DOS: 07/10/2018 PULMONARY PROGRESS NOTE REASON FOR CONSULTATION: Assess the patient's current abnormal respiratory symptom. HISTORY OF PRESENT ILLNESS: This is a 33-year-old female with past history of bronchial asthma in past hospitalization, presented to the Emergency Room stating increase in the respiratory symptoms occurred since last several days. The patient's symptoms started about a week ago. She was seen in the Emergency Room on 07/06/2018, prescribed prednisone tapering dose and doxycycline and the short-acting bronchodilators inhaler. The patient stated that she has taken the medication, did not result in improvement in respiratory symptoms. She was complaining of tightness in the chest and difficulty breathing with that. She does have symptoms of cough, which reported nonproductive, inability to expectorate sputum. She denies symptoms of chest pain. She denies symptoms of hemoptysis. She does have symptoms of wheezing. PAST MEDICAL HISTORY: Known: 1. Allergic rhinitis. 2. Bronchial asthma as minimum of mild intermittent severity. 3. Chronic obesity. 4. Chronic nicotine dependence. PAST SURGICAL HISTORY: 1. Tonsillectomy. 2. Removal of pilonidal cyst. 3. Therapeutic bronchoscopy that was done in 10/2017. MEDICATIONS: Current administered medications noted use of Lovenox for DVT prophylaxis, Protonix, IV Solu-Medrol 60 mg q.8 hours, nicotine replacement patches, DuoNeb q.4 hours, Levaquin, and others. DRUG ALLERGIES: NOTED REMARKABLE FOR: 1. PENICILLIN. 2. FLEXERIL. SOCIAL HISTORY: The patient is not , lives at home. She does not have any history of alcohol use or illicit drug use. The tobacco use was noted since teenager. The patient smoked up to 2 packs of cigarettes a day, she is currently smoking less than a pack of cigarettes per day as per the patient. FAMILY HISTORY: Noted noncontributory. REVIEW OF SYSTEMS: Remaining systems were reviewed with the patient and they were noted as follows: CONSTITUTIONAL SYMPTOMS: Fatigue and tiredness noted without any symptoms of fever or chills. EYES: She denies any burning, redness, or tenderness. [place], [place] REPORT OF CONSULTATION NAME: GURPREET HOPKINS UNIT #: [id number] ROOM: 402 DOCTOR: LESLYE RAMOS MD BIRTHDATE: [birth year] EARS, NOSE, AND THROAT SYMPTOMS: No sore throat, hoarseness, otalgia, postnasal drainage, or epistaxis. CARDIOVASCULAR SYSTEM: No angina pain, edema, or pain of the lower extremity. GASTROINTESTINAL SYMPTOMS: No dysphagia, nausea, vomiting, diarrhea, abdominal pain, hematemesis, melena, or hematochezia. SKIN: She denies abnormal lesions or rashes. CENTRAL NERVOUS SYSTEM: She denies dizziness, headache, diplopia, or syncopal episode. GENITOURINARY SYMPTOMS: No dysuria, suprapubic pain, or hematuria. Remaining systems were reviewed and they were noted all negative. PHYSICAL EXAMINATION: GENERAL: This is a 33-year-old female patient, who has been noted currently awake and alert, sitting on the bed without any acute distress. Height of the patient recorded by the nursing staff at the current admission as 5 feet 2 inches, weight of 265 pounds, and BMI of 48. VITAL SIGNS: Normal temperature since admission, respiratory rate of 17-20, heart rate of 98-111, blood pressure of 104/67-136/82, and the pulse oxygen saturation of the patient on room air is 96% saturation. HEENT: On examination, chronic obesity. Head was atraumatic. Eyes nonicterus. NECK: Supple. CARDIOVASCULAR: S1, S2 is audible. LUNGS: Moderate decreased breath sounds noted with nlzl-[id number]-gaazjytf expiratory wheezing. No crackles. ABDOMEN: Soft, obese, nontender. EXTREMITIES: Without any acute edema. CENTRAL NERVOUS SYSTEM: Cranial nerves 2-12 intact. No focal deficit. MUSCULOSKELETAL: Without any acute deformity. VISIBLE SKIN: No lesions or rashes. LABORATORY DATA: CBC of the patient of 07/09/2018 noted normal WBC count. The remaining CBC is normal. Lactic acid yesterday noted normal. CMP yesterday noted normal BUN and creatinine. IMAGING DATA: The chest x-ray that was done on 07/07/2018 does not show any acute pulmonary infiltration, peribronchial thickening was noted suggested possibility of bronchitis. The chest x-ray that was done yesterday, PA and lateral view was also reviewed to be normal. IMPRESSION: The patient has been currently admitted to the hospital noted with acute exacerbation of bronchial asthma with history of chronic continued nicotine abuse and tobacco use of the patient overall noted decreased, but not completely resolved. Symptoms of coughing that was noted nonproductive. PLAN OF TREATMENT: Reduce Solu-Medrol dose to 40 mg b.i.d. Continuation of the bronchodilators at the present time. The patient was started on high dose of Mucinex and flutter valve was added to the treatment. Sputum for Gram stain culture and other assessment necessary was ordered. Nicotine replacement patches will be continued. Other additional treatment changes will be made based on progression of the illness. Usual care. Antibiotics will be changed [place], [place] REPORT OF CONSULTATION NAME: GURPREET HOPKINS UNIT #: [id number] ROOM: [facility] DOCTOR: LESLYE RAMOS MD BIRTHDATE: [birth year] to oral antibiotics as there was no evidence of acute pneumonia at this time in the form of the Zithromax. LESLYE BAIG MD CM:CONSTR:REPORT OF CONSULTATION 1013 07/10/18 7446 interface
--- NOTE | ~2018-07-09 | PROC NOTE ---
[place], [place] PROCEDURE NOTE NAME: GURPREET HOPKINS UNIT #: [id number] ROOM: 402 DOCTOR: SAFIA TERAN MD,LESLYE BIRTHDATE: [birth year] DOS: 07/13/2018 PROCEDURE: Bronchoscopy. PREOPERATIVE DIAGNOSES: Persistent severe cough, not responding to treatment with musculoskeletal pain with nonproductive cough as well and leukocytosis. POSTOPERATIVE DIAGNOSES: The patient with severe impacted mucus plug was noted with purulent secretion remove mainly from the left endobronchial tree. COMPLICATIONS: None. PROCEDURE DESCRIPTION: Informed consent obtained for the patient. The patient was brought to the OR, placed in a supine position. Conscious sedation administered by the Anesthesia Department. After that, the bronchoscope advanced to the airway into laryngeal area. Epiglottis and vocal cord seen, which were moving symmetrical movements. The bronchoscope advanced through the vocal cords to the tracheal lumen that shows small to moderate amount of secretion, which appeared to be most mucoid. Faustina noted sharp. The right upper, middle, lower lobe opening noted with minimal secretion, which was suctioned out. Left main stem bronchus, left upper and lower and lingular lobe noted with thick mucopurulent secretion mixture with the mucus impaction of the airways as well. Secretions suctioned out clear with normal saline wash. The culture was sent for all the bronchial washing. Procedure well tolerated by the patient without complication. Postoperative findings were discussed with the patient's family members. LESLYE BAIG MD CM:PROCNOTE:PROCEDURE NOTE 1014 1307 LESLYE TERAN MD
--- NOTE | ~2018-07-09 | PR ---
[place], [place] PROGRESS NOTE NAME: GURPREET HOPKINS UNIT #: [id number] ROOM: 402 DOCTOR: SAFIA TERAN MD,LESLYE BIRTHDATE: [birth year] DOS: 07/11/2018 PULMONARY PROGRESS NOTE SUBJECTIVE: The patient noted comfortable at this time, resting on the bed for this patient, still noted the coughing with some wheezing, shortness of breath. The symptoms noted partially decreased. Denies symptoms of chest pain, fever or chills. Denies symptoms of nausea or vomiting. PHYSICAL EXAMINATION: VITAL SIGNS: Normal temperature, respiratory rate 18, heart rate 90, blood pressure 131/58. Pulse ox saturation on room air 96% saturation. HEENT: No new change. NECK: Supple. CARDIOVASCULAR: S1, S2 is audible. LUNGS: The patient noted moderate decreased breath sounds, mild to moderate expiratory wheezing, partially decreased from yesterday. ABDOMEN: Soft and obese. EXTREMITIES: Without any acute edema. LABORATORY DATA: CBC: WBC count 21.4, remaining CBC was normal. IMPRESSION: Acute exacerbation of chronic obstructive pulmonary disease/bronchial asthma with acute bronchitis with nonproductive cough and suspected mucus impaction. PLAN OF TREATMENT: No changes in the plan of care for the patient at this time. Continue current therapy, corticosteroids, bronchodilators. High dose of Mucinex and flutter valve. Monitor the cough of the patient closely and leukocytosis most likely related to the use of corticosteroids. LESLYE BAIG MD CM:PNTERRENCE [id number] LESLYE TERAN MD 07/11/18 1418 interface
--- NOTE | ~2018-07-09 | PR ---
[place], [place] PROGRESS NOTE NAME: GURPREET HOPKINS UNIT #: [id number] ROOM: 402 DOCTOR: SAFIA TERAN MDLESLYE BIRTHDATE: [birth year] DOS: 07/13/2018 PULMONARY PROGRESS NOTE SUBJECTIVE: The patient was noted about the same as of yesterday severe nonproductive cough, but reporting increased symptoms of wheezing this morning. Denies symptoms of chest pain. She was continued on Solu-Medrol 40 mg b.i.d. as well. She does not have symptoms of hemoptysis. The pain was described in the upper portion of the abdomen with excessive coughing as well. The coughing remains nonproductive. Denies symptoms of nausea, vomiting, or diarrhea. Denies symptoms of headache or diplopia. Remaining systems were reviewed. They were noted all negative. OBJECTIVE: VITAL SIGNS: Normal temperature, respiratory rate 16, heart rate of 87, blood pressure 113/88. Pulse oxygen saturation on room air 96% saturation at rest. HEENT: Examination shows head was atraumatic. Eyes, nonicterus. NECK: Supple. CARDIOVASCULAR: S1, S2 is audible. LUNGS: Moderate wheezing noted in the lungs bilaterally with decreased breath sounds bilaterally. ABDOMEN: Soft and obese. EXTREMITIES: Without acute edema. MUSCULOSKELETAL: Without acute deformities. CENTRAL NERVOUS SYSTEM: Cranial nerves 2-12 intact. LABORATORY DATA: Beta-hCG level today was noted as negative. CBC this morning, WBC count elevated at 18.2 from 16 yesterday. Other CBC was noted normal. The BMP was noted normal. IMPRESSION: 1. Ongoing acute exacerbation of chronic obstructive pulmonary disease, responding to treatment with ongoing bronchitis as well with suspected mucus impaction. No further resolution of symptoms. Leukocytosis may be related to steroids, rule out any superimposed infection. 2. Chronic obesity. 3. History of nicotine abuse. PLAN OF MANAGEMENT: Continuation of bronchodilators, oxygen supplementation, corticosteroid, and clinical monitoring. Proceed with the fibrobronchoscopy. The patient noted n.p.o. past midnight for procedure. Assessment and management discussed with the primary care attending, Dr. David. [place], [place] PROGRESS NOTE NAME: GURPREET HOPKINS UNIT #: [id number] ROOM: 402 DOCTOR: LESLYE RAMOS MD BIRTHDATE: [birth year] LESLYE BAIG MD CM:PNTRANS [id number] LESLYE TERAN MD 07/20/18 1008 interface
--- NOTE | ~2018-07-09 | PR ---
[place], [place] PROGRESS NOTE [id number] #: [id number] ROOM: 402 DOCTOR: SAFIA TERAN MD,LESLYE BIRTHDATE: [birth year] DOS: 07/12/2018 PULMONARY PROGRESS NOTE SUBJECTIVE: The patient continued to have severe cough, which has not been resolving with current medical management. Continued high dose of Mucinex and flutter valve was used for the patient and bronchodilators. She was continuing steroids. Also, continued wheezing as well, which worsened with exertion. The patient's shortness of breath remains unchanged in the last 48 hours. Denies symptoms of fever or chills. Denies symptoms of hemoptysis. The patient has been using nicotine replacement patches as well. Denies symptom of postnasal drainage, sore throat, or hoarseness. Denies any symptoms of diplopia, headache or pain of the lower extremities. Remaining systems were reviewed, they were noted all negative. OBJECTIVE: VITAL SIGNS: Normal temperature, respiratory rate 22, heart rate of 110, blood pressure 128/77. Pulse ox saturation noted on room air 97% saturation. HEENT: Chronic obesity. Head was atraumatic. Eyes nonicterus. NECK: Supple and obese. CARDIOVASCULAR: S1, S2 is audible. LUNGS: The patient noted with moderate expiratory wheezing. There were no crackles. ABDOMEN: Soft and obese. EXTREMITIES: No acute edema. SKIN: Visible skin, no lesions or rashes. CENTRAL NERVOUS SYSTEM: Cranial nerves 2-12 are intact. MUSCULOSKELETAL: Without any acute deformities. LABORATORY DATA: BMP this morning was noted essentially normal. CBC this morning, white cell count is elevated at 16.8 with normal hemoglobin and hematocrit. IMPRESSION: Elevation of white cell count, most likely corticosteroid persistent. Respiratory symptoms of cough with wheezing and shortness of breath, not responding to current maximal medical therapy for this hospitalization. History of past nicotine abuse as well. PLAN OF THERAPY: The patient will be continuing current maximal medical management for exacerbation of COPD management. Therapeutic bronchoscopy was planned for the patient and it will be done tomorrow morning ____ nonresolution of symptoms remains persistent for this hospitalization with maximal medical management. The risk and benefits of the procedure were discussed. The patient is agreeable for the procedure. Additional change in treatment if necessary will be done later with progression of the symptoms. [place], [place] PROGRESS NOTE NAME: GURPREET HOPKINS UNIT #: [id number] ROOM: 402 DOCTOR: SAFIA TERAN MD,LESLYE BIRTHDATE: [birth year] LESLYE BAIG MD CM:PNTERRENCE [id number] LESLYE TERAN MD 07/12/18 1607 interface
[~2018-07-09 10:08] MED LIST changes: +DOXYCYCLINE100 M3 PO; +MEDROL DOSEPAK4 MG PO; +PROAIR HFA8.5 GM INH
[2018-07-09 10:10] VITALS: BP 174/111
[2018-07-09 10:50] LABS: BASO # 0.1 10*3/uL (0.0-0.1); BASO % 0.5 % (0.0-1.0); EOS # 0.3 10*3/uL (0.0-0.4); EOS % 2.7 % (1.0-4.0); HEMATOCRIT 39.1 % (37.0-47.0); HEMOGLOBIN 13.1 g/dl (12.0-16.0); LYMPH # 4.9 10*3/uL (1.3-4.4); LYMPH % 49.3 % (27.0-41.0); MEAN CELL VOLUME 85.2 fl (81.0-99.0); MEAN CORPUSCULAR HGB 28.5 pg (27.0-31.0); MEAN CORPUSCULAR HGB CONC 33.5 g/dl (33.0-37.0); MEAN PLATELET VOLUME 9.4 fl (9.6-12.3); MONO # 0.6 10*3/uL (0.1-1.0); MONO % 5.5 % (3.0-9.0); NEUT # 4.2 10*3/uL (2.3-7.9); NEUT % 41.8 % (47.0-73.0); PLATELET COUNT AUTOMATED 358 10*3/uL (130-400); RED BLOOD COUNT 4.59 10*6/uL (4.10-5.10); RED CELL DISTRI WIDTH 13.2 % (0-14.5)
[2018-07-09 10:59] VITALS: BP 136/66
[2018-07-09 11:06] LABS: ALBUMIN 3.5 gm/dl (3.1-4.5); ALKALINE PHOSPHATASE 66 U/L (45-117); BUN 12 mg/dl (7-24); CHLORIDE 106 mmol/L (98-107); CREATININE 0.57 mg/dL (0.55-1.02); POTASSIUM 3.8 mmol/L (3.5-5.1); SGOT/AST 27 IU/L (3-35); SGPT/ALT 42 U/L (12-78); SODIUM 139 mmol/L (136-145); TOTAL PROTEIN 6.9 gm/dL (6.4-8.2)
[2018-07-09 12:29] VITALS: BP 145/93
[2018-07-09 16:00] VITALS: BP 144/74
[2018-07-09 20:00] VITALS: BP 146/93
[2018-07-10] VITALS: BP 124/67
[2018-07-10 07:02] LABS: BASO % 0.1 % (0.0-1.0); HEMATOCRIT 38.3 % (37.0-47.0); HEMOGLOBIN 12.9 g/dl (12.0-16.0); LYMPH # 1.7 10*3/uL (1.3-4.4); LYMPH % 10.8 % (27.0-41.0); MEAN CELL VOLUME 84.7 fl (81.0-99.0); MEAN CORPUSCULAR HGB 28.5 pg (27.0-31.0); MEAN CORPUSCULAR HGB CONC 33.7 g/dl (33.0-37.0); MEAN PLATELET VOLUME 10.2 fl (9.6-12.3); MONO # 0.1 10*3/uL (0.1-1.0); MONO % 0.4 % (3.0-9.0); NEUT # 13.9 10*3/uL (2.3-7.9); PLATELET COUNT AUTOMATED 380 10*3/uL (130-400); RED BLOOD COUNT 4.52 10*6/uL (4.10-5.10); RED CELL DISTRI WIDTH 13.1 % (0-14.5); WHITE BLOOD COUNT 15.8 10*3/uL (4.8-10.8)
[2018-07-10 07:17] LABS: ACT PARTIAL THROMBO TIME 23.9 SECONDS (20.8-31.5); INTERNATIONAL NORM RATIO 0.9 (2.0-3.5)
[2018-07-10 07:25] LABS: ALBUMIN 3.6 gm/dl (3.1-4.5); BUN 9 mg/dl (7-24); CHLORIDE 108 mmol/L (98-107); CHOLESTEROL 200 mg/dL (<200); CREATININE 0.63 mg/dL (0.55-1.02); SGOT/AST 19 IU/L (3-35); SGPT/ALT 44 U/L (12-78); SODIUM 142 mmol/L (136-145)
[2018-07-10 07:31] LABS: ALKALINE PHOSPHATASE 60 U/L (45-117); FREE T4 1.08 ng/dl (0.76-1.46); HDL CHOLESTEROL 55 mg/dl (40-60); LDL CHOLESTEROL 132 mg/dL (9-159); PHOSPHOROUS 3.2 mg/dL (2.5-4.9); THYROID STIM HORMONE (HS) 0.526 uIU/ml (0.358-4.75); TOTAL PROTEIN 7.5 gm/dL (6.4-8.2); TRIGLYCERIDES 65 mg/dl (<150); VLDL CHOLESTEROL 13 mg/dL (6-40)
[2018-07-10 08:00] VITALS: BP 136/82
[2018-07-10 08:40] LABS: VITAMIN D, 25-HYDROXY 24.1 ng/mL (30-100)
[2018-07-10 12:00] VITALS: BP 145/88
[2018-07-10 16:00] VITALS: BP 143/87
[2018-07-10 20:00] VITALS: BP 127/75
[2018-07-11 00:26] VITALS: BP 115/64
[2018-07-11 08:00] VITALS: BP 109/66
[2018-07-11 08:22] LABS: BASO % 0.1 % (0.0-1.0); HEMATOCRIT 38.4 % (37.0-47.0); HEMOGLOBIN 12.7 g/dl (12.0-16.0); LYMPH # 3.7 10*3/uL (1.3-4.4); LYMPH % 17.3 % (27.0-41.0); MEAN CELL VOLUME 86.7 fl (81.0-99.0); MEAN CORPUSCULAR HGB 28.7 pg (27.0-31.0); MEAN CORPUSCULAR HGB CONC 33.1 g/dl (33.0-37.0); MEAN PLATELET VOLUME 9.9 fl (9.6-12.3); MONO # 0.9 10*3/uL (0.1-1.0); NEUT # 16.6 10*3/uL (2.3-7.9); NEUT % 77.6 % (47.0-73.0); PLATELET COUNT AUTOMATED 386 10*3/uL (130-400); RED BLOOD COUNT 4.43 10*6/uL (4.10-5.10); RED CELL DISTRI WIDTH 13.4 % (0-14.5); WHITE BLOOD COUNT 21.4 10*3/uL (4.8-10.8)
[2018-07-11 08:53] LABS: BUN 13 mg/dl (7-24); CHLORIDE 107 mmol/L (98-107); CREATININE 0.57 mg/dL (0.55-1.02); POTASSIUM 4.2 mmol/L (3.5-5.1); SODIUM 142 mmol/L (136-145)
[2018-07-11 12:00] VITALS: BP 131/58
[2018-07-11 16:00] VITALS: BP 131/75
[2018-07-11 20:00] VITALS: BP 125/73
[2018-07-12] VITALS: BP 107/61
[2018-07-12 05:48] LABS: BASO % 0.2 % (0.0-1.0); HEMOGLOBIN 12.4 g/dl (12.0-16.0); LYMPH # 2.8 10*3/uL (1.3-4.4); LYMPH % 16.6 % (27.0-41.0); MEAN CORPUSCULAR HGB 28.4 pg (27.0-31.0); MEAN CORPUSCULAR HGB CONC 32.6 g/dl (33.0-37.0); MONO # 0.4 10*3/uL (0.1-1.0); MONO % 2.1 % (3.0-9.0); NEUT # 13.5 10*3/uL (2.3-7.9); NEUT % 80.1 % (47.0-73.0); PLATELET COUNT AUTOMATED 367 10*3/uL (130-400); RED BLOOD COUNT 4.37 10*6/uL (4.10-5.10); RED CELL DISTRI WIDTH 13.4 % (0-14.5); WHITE BLOOD COUNT 16.8 10*3/uL (4.8-10.8)
[2018-07-12 06:04] LABS: BUN 15 mg/dl (7-24); CHLORIDE 104 mmol/L (98-107); CREATININE 0.55 mg/dL (0.55-1.02); POTASSIUM 4.5 mmol/L (3.5-5.1); SODIUM 141 mmol/L (136-145)
[2018-07-12 08:00] VITALS: BP 128/77
[2018-07-12 12:00] VITALS: BP 137/75
[2018-07-12 16:00] VITALS: BP 132/75
[2018-07-12 20:00] VITALS: BP 135/74
[2018-07-13] VITALS (7 sets, daily range): BP systolic 111–144; BP diastolic 62–88
[2018-07-13 07:19] LABS: BASO % 0.1 % (0.0-1.0); HEMATOCRIT 39.1 % (37.0-47.0); HEMOGLOBIN 12.7 g/dl (12.0-16.0); LYMPH # 3.8 10*3/uL (1.3-4.4); LYMPH % 20.6 % (27.0-41.0); MEAN CELL VOLUME 87.3 fl (81.0-99.0); MEAN CORPUSCULAR HGB 28.3 pg (27.0-31.0); MEAN CORPUSCULAR HGB CONC 32.5 g/dl (33.0-37.0); MEAN PLATELET VOLUME 9.5 fl (9.6-12.3); MONO # 0.5 10*3/uL (0.1-1.0); NEUT # 13.7 10*3/uL (2.3-7.9); NEUT % 75.2 % (47.0-73.0); PLATELET COUNT AUTOMATED 367 10*3/uL (130-400); RED BLOOD COUNT 4.48 10*6/uL (4.10-5.10); RED CELL DISTRI WIDTH 13.3 % (0-14.5); WHITE BLOOD COUNT 18.2 10*3/uL (4.8-10.8)
[2018-07-13 07:42] LABS: BUN 16 mg/dl (7-24); CHLORIDE 105 mmol/L (98-107); CREATININE 0.55 mg/dL (0.55-1.02); POTASSIUM 4.6 mmol/L (3.5-5.1); SODIUM 142 mmol/L (136-145)
[2018-07-13] MEDS ORDERED: ZITHROMAX250 MG PO (16:25)
[2018-07-13] MEDS ORDERED: PREDNISONE10 MG PO (16:25)
[2018-07-14 15:06] LABS: ACID FAST SPEC PROCESSING Concentration (.)
[2018-08-26 09:12] LABS: ACID FAST CULTURE Negative (.)
[2018-09-11 11:04] LABS: ORGANISM ID, MOLD Final report (.); RESULT 1 Final Identification (.)
== END 2018-07-13 17:58 | disposition home or self-care (01) | DRG 190 ==
LOC: ED 10:08 → 4E 11:11 → EDHOLD 11:11 → 4E 11:23
PROVIDERS: Emergency Medicine; Internal Medicine; Internal Medicine Critical Care Medicine
PROC: 0BC48ZZ Extirpation of Matter from Right Upper Lobe Bronchus, Via Natural or Artificial Opening Endoscopic (ICD-10-PCS; principal; 2018-07-13)
PROC: 0BC18ZZ Extirpation of Matter from Trachea, Via Natural or Artificial Opening Endoscopic (ICD-10-PCS; principal; 2018-07-13)
PROC: 0BC78ZZ Extirpation of Matter from Left Main Bronchus, Via Natural or Artificial Opening Endoscopic (ICD-10-PCS; principal; 2018-07-13)
PROC: 0BCB8ZZ Extirpation of Matter from Left Lower Lobe Bronchus, Via Natural or Artificial Opening Endoscopic (ICD-10-PCS; principal; 2018-07-13)
PROC: 0BC68ZZ Extirpation of Matter from Right Lower Lobe Bronchus, Via Natural or Artificial Opening Endoscopic (ICD-10-PCS; principal; 2018-07-13)
PROC: 0BC98ZZ Extirpation of Matter from Lingula Bronchus, Via Natural or Artificial Opening Endoscopic (ICD-10-PCS; principal; 2018-07-13)
PROC: 0BC38ZZ Extirpation of Matter from Right Main Bronchus, Via Natural or Artificial Opening Endoscopic (ICD-10-PCS; principal; 2018-07-13)
PROC: 0BC88ZZ Extirpation of Matter from Left Upper Lobe Bronchus, Via Natural or Artificial Opening Endoscopic (ICD-10-PCS; principal; 2018-07-13)
PROC: 0BC58ZZ Extirpation of Matter from Right Middle Lobe Bronchus, Via Natural or Artificial Opening Endoscopic (ICD-10-PCS; principal; 2018-07-13)
DX: J44.0 Chronic obstructive pulmonary disease with (acute) lower respiratory infection (principal); J18.9 Pneumonia, unspecified organism; J45.901 Unspecified asthma with (acute) exacerbation; Z68.42 Body mass index [BMI] 45.0-49.9, adult; T17.590A Other foreign object in bronchus causing asphyxiation, initial encounter; T17.490A Other foreign object in trachea causing asphyxiation, initial encounter; J20.9 Acute bronchitis, unspecified; J44.1 Chronic obstructive pulmonary disease with (acute) exacerbation; E66.01 Morbid (severe) obesity due to excess calories; I10 Essential (primary) hypertension; F41.9 Anxiety disorder, unspecified; X58.XXXA Exposure to other specified factors, initial encounter; F32.9 Major depressive disorder, single episode, unspecified; G43.909 Migraine, unspecified, not intractable, without status migrainosus; Z72.0 Tobacco use; Z91.09 Other allergy status, other than to drugs and biological substances; Z71.6 Tobacco abuse counseling; Z88.0 Allergy status to penicillin; Z88.8 Allergy status to other drugs, medicaments and biological substances; Z79.899 Other long term (current) drug therapy; Z90.89 Acquired absence of other organs; Z87.01 Personal history of pneumonia (recurrent); Z82.49 Family history of ischemic heart disease and other diseases of the circulatory system; Z83.3 Family history of diabetes mellitus; Z84.89 Family history of other specified conditions; Z80.8 Family history of malignant neoplasm of other organs or systems; Y93.89 Activity, other specified; Y92.89 Other specified places as the place of occurrence of the external cause; Y99.8 Other external cause status

== ENCOUNTER 2018-09-10 17:53 | Emergency (ER) | payer BC ==
[~2018-09-10] VITALS: Ht 160 cm; Wt 113.4 kg
[2018-09-10 18:31] LABS: BILIRUBIN NEGATIVE (NEGATIVE); BLOOD 3+ (NEGATIVE); CLARITY CLOUDY (CLEAR); GLUCOSE NEGATIVE (NEGATIVE); KETONE TRACE (NEGATIVE); LEUKO ESTERASE TRACE (NEGATIVE); NITRITE POSITIVE (NEGATIVE); PH 5.5 (5.0-9.0); SPECIFIC GRAVITY >= 1.030 (1.005-1.030)
[2018-09-10 18:38] LABS: BASO # 0.1 10*3/uL (0.0-0.1); BASO % 0.6 % (0.0-1.0); EOS # 0.3 10*3/uL (0.0-0.4); EOS % 3.1 % (1.0-4.0); HEMATOCRIT 37.6 % (37.0-47.0); HEMOGLOBIN 12.3 g/dl (12.0-16.0); LYMPH # 3.5 10*3/uL (1.3-4.4); LYMPH % 39.3 % (27.0-41.0); MEAN CELL VOLUME 88.1 fl (81.0-99.0); MEAN CORPUSCULAR HGB 28.8 pg (27.0-31.0); MEAN CORPUSCULAR HGB CONC 32.7 g/dl (33.0-37.0); MEAN PLATELET VOLUME 9.2 fl (9.6-12.3); MONO # 0.5 10*3/uL (0.1-1.0); MONO % 5.3 % (3.0-9.0); NEUT # 4.6 10*3/uL (2.3-7.9); NEUT % 51.6 % (47.0-73.0); PLATELET COUNT AUTOMATED 386 10*3/uL (130-400); RED BLOOD COUNT 4.27 10*6/uL (4.10-5.10); RED CELL DISTRI WIDTH 13.2 % (0-14.5); WHITE BLOOD COUNT 8.8 10*3/uL (4.8-10.8)
[2018-09-10 18:38] LABS: COLOR RED (YELLOW)
[2018-09-10 18:39] LABS: RBC TNTC rbc/hpf (0-2)
[2018-09-10 18:47] LABS: INTERNATIONAL NORM RATIO 0.9 (2.0-3.5)
[2018-09-10 18:53] LABS: ALBUMIN 3.5 gm/dl (3.1-4.5); ALKALINE PHOSPHATASE 66 U/L (45-117); BUN 13 mg/dl (7-24); CHLORIDE 111 mmol/L (98-107); CREATININE 0.63 mg/dL (0.55-1.02); POTASSIUM 3.6 mmol/L (3.5-5.1); SGOT/AST 11 IU/L (3-35); SGPT/ALT 21 U/L (12-78); SODIUM 144 mmol/L (136-145); TOTAL PROTEIN 7.1 gm/dL (6.4-8.2)
[2018-09-10 19:02] LABS: BETA-HCG, QUANT < 1.0 mIU/mL (1-3)
[2018-09-10] MEDS ORDERED: MACROBID100 M1 PO (20:00)
== END 2018-09-10 20:04 | disposition home or self-care (01) ==
LOC: ED 17:53
PROVIDERS: Nurse Practitioner Family
DX: N92.6 Irregular menstruation, unspecified (principal); N39.0 Urinary tract infection, site not specified; Z88.0 Allergy status to penicillin; Z88.8 Allergy status to other drugs, medicaments and biological substances

== ENCOUNTER 2018-09-13 23:43 | Emergency (ER) | payer BC ==
[~2018-09-13] VITALS: Wt 113.4 kg
[~2018-09-13 23:43] MED LIST changes: +MACROBID100 M1 PO
== END 2018-09-14 00:03 | disposition home or self-care (01) ==
LOC: ED 23:43
DX: R11.10 Vomiting, unspecified (principal); R19.7 Diarrhea, unspecified; J45.909 Unspecified asthma, uncomplicated; I10 Essential (primary) hypertension; E66.01 Morbid (severe) obesity due to excess calories; F17.200 Nicotine dependence, unspecified, uncomplicated; Z88.0 Allergy status to penicillin; Z88.8 Allergy status to other drugs, medicaments and biological substances; Z87.440 Personal history of urinary (tract) infections

== ENCOUNTER 2018-12-18 07:15 | Emergency (ER) | payer SELFPAY ==
[~2018-12-18] VITALS: Ht 160 cm; Wt 117.9 kg
[2018-12-18] MEDS ORDERED: TAMIFLU 75MG CA75 MG PO (09:19)
[2019-03-11] MEDS ORDERED: ZITHROMAX250 MG PO (22:34)
[2019-03-11] MEDS ORDERED: PREDNISONE20 M1 PO (22:34)
[2019-03-11] MEDS ORDERED: LOMOTIL 2.5-0.1 EACH PO (22:34)
== END 2018-12-18 09:28 | disposition home or self-care (01) ==
LOC: ED 07:15
DX: J10.1 Influenza due to other identified influenza virus with other respiratory manifestations (principal); J45.909 Unspecified asthma, uncomplicated; I10 Essential (primary) hypertension; E66.01 Morbid (severe) obesity due to excess calories; F17.200 Nicotine dependence, unspecified, uncomplicated; Z88.0 Allergy status to penicillin; Z88.8 Allergy status to other drugs, medicaments and biological substances; Z79.2 Long term (current) use of antibiotics

== ENCOUNTER 2019-05-04 15:19 | Emergency (ER) | payer OTHER ==
[~2019-05-04] VITALS: Ht 160 cm; Wt 117.9 kg
[~2019-05-04 15:19] MED LIST changes: +LOMOTIL 2.5-0.1 EACH PO; +PREDNISONE20 M1 PO; +TAMIFLU 75MG CA75 MG PO
[2019-05-04 15:48] LABS: BILIRUBIN NEGATIVE (NEGATIVE); BLOOD NEGATIVE (NEGATIVE); CLARITY CLEAR (CLEAR); COLOR YELLOW (YELLOW); GLUCOSE NEGATIVE (NEGATIVE); KETONE NEGATIVE (NEGATIVE); LEUKO ESTERASE NEGATIVE (NEGATIVE); NITRITE NEGATIVE (NEGATIVE); UROBILINOGEN 0.2 E.U./dl (0.2-1.0)
[2019-05-04 15:58] LABS: BACTERIA 2+
[2019-05-04 16:29] LABS: BASO % 0.4 % (0.0-1.0); EOS # 0.1 10*3/uL (0.0-0.4); EOS % 1.1 % (1.0-4.0); HEMATOCRIT 40.8 % (37.0-47.0); HEMOGLOBIN 13.2 g/dl (12.0-16.0); LYMPH # 3.7 10*3/uL (1.3-4.4); LYMPH % 34.5 % (27.0-41.0); MEAN CELL VOLUME 90.3 fl (81.0-99.0); MEAN CORPUSCULAR HGB 29.2 pg (27.0-31.0); MEAN CORPUSCULAR HGB CONC 32.4 g/dl (33.0-37.0); MEAN PLATELET VOLUME 9.8 fl (9.6-12.3); MONO # 0.6 10*3/uL (0.1-1.0); MONO % 5.2 % (3.0-9.0); NEUT # 6.3 10*3/uL (2.3-7.9); NEUT % 58.4 % (47.0-73.0); PLATELET COUNT AUTOMATED 365 10*3/uL (130-400); RED BLOOD COUNT 4.52 10*6/uL (4.10-5.10); RED CELL DISTRI WIDTH 13.2 % (0-14.5); WHITE BLOOD COUNT 10.7 10*3/uL (4.8-10.8)
[2019-05-04 16:47] LABS: ALBUMIN 3.4 gm/dl (3.1-4.5); ALKALINE PHOSPHATASE 63 U/L (45-117); BUN 11 mg/dl (7-24); CHLORIDE 107 mmol/L (98-107); CREATININE 0.81 mg/dL (0.55-1.02); SGOT/AST 22 IU/L (3-35); SGPT/ALT 35 U/L (12-78); SODIUM 139 mmol/L (136-145)
[2019-05-04] MEDS ORDERED: Motrin,Rufen800 MG PO (17:29)
== END 2019-05-04 17:23 | disposition home or self-care (01) ==
LOC: ED 15:19
PROVIDERS: Emergency Medicine
DX: S39.012A Strain of muscle, fascia and tendon of lower back, initial encounter (principal); J45.909 Unspecified asthma, uncomplicated; I10 Essential (primary) hypertension; E66.01 Morbid (severe) obesity due to excess calories; F17.200 Nicotine dependence, unspecified, uncomplicated; Z88.0 Allergy status to penicillin; Z88.8 Allergy status to other drugs, medicaments and biological substances; Z79.2 Long term (current) use of antibiotics; Z79.899 Other long term (current) drug therapy; X58.XXXA Exposure to other specified factors, initial encounter; Y93.89 Activity, other specified; Y92.098 Other place in other non-institutional residence as the place of occurrence of the external cause; Y99.8 Other external cause status

== ENCOUNTER 2019-06-09 20:19 | Inpatient (IN) | payer OTHER ==
[~2019-06-09] VITALS: Ht 160 cm; Wt 133.8 kg
--- NOTE | ~2019-06-09 | CON ---
[place], [place] REPORT OF CONSULTATION NAME: GURPREET MAGANA UNIT #: [id number] ROOM: 521 DOCTOR: LESLYE RAMOS MD BIRTHDATE: [birth year] DOS: 06/10/2019 PULMONARY CONSULTATION EVALUATION REASON FOR CONSULTATION: Assess the patient's acute exacerbation of bronchial asthma. HISTORY OF PRESENT ILLNESS: This is a 34-year-old white female patient with longstanding history of bronchial asthma, taking the short-acting bronchodilators. The patient has been known and treated for in 2018 also require bronchoscopy at that time. The patient has been admitted to the hospital under care of the hospitalist service on 06/09/2019. The patient started progressively increased symptoms of shortness of breath associated with wheezing, nonproductive cough for several days prior to admission to the hospital with symptoms noted gradually worsening, not resolving home treatment with short-acting bronchodilators. The patient presented to the Emergency Room and assessed and after that hospital for further care of acute exacerbation of bronchial asthma. She was noted [id number] nonproductive cough and shortness of breath occurred with exertion. Wheezing also reported significant tightness in the chest pain. REVIEW OF SYSTEMS: CONSTITUTIONAL: Fatigue and tiredness noted without any symptoms of fever or chills. EYES: Denies burning, redness, or tenderness. EARS, NOSE, THROAT, EAR, NOSE, THROAT SYMPTOMS: Denies sore throat, hoarseness, otalgia, postnasal drainage or epistaxis. CARDIOVASCULAR: Denies angina pain, edema, pain of the lower extremities. GASTROINTESTINAL: Denies dysphagia, nausea, vomiting, diarrhea, abdominal pain, hematemesis, melena, or hematochezia. SKIN: Denies abnormal lesions or rashes. CENTRAL NERVOUS SYSTEM: No dizziness, headache, diplopia or syncopal episode. Remaining systems were reviewed. They were noted all negative. PAST MEDICAL HISTORY: 1. Bronchial asthma, severity unknown. The patient has now been seen and assessed in my office. 2. Chronic nicotine dependence. 3. Chronic severe obesity. 4. Allergic rhinitis. 5. Essential hypertension. 6. General anxiety disorder. PAST SURGICAL HISTORY: 1. Reported surgical removal of pilonidal cyst. 2. Tonsillectomy. 3. Therapeutic bronchoscopy in 2018. SOCIAL HISTORY: The patient stated she is and lives at home. She has [place], [place] REPORT OF CONSULTATION NAME: GURPREET MAGANA UNIT #: [id number] ROOM: 521 DOCTOR: LESLYE RAMOS MD BIRTHDATE: [birth year] no children. She has been noted tobacco use, ranging between half to one and a half pack of cigarettes per day from the age of [age] years old. Denies history of alcohol use or illicit drug use. FAMILY HISTORY: The patient was noted father with complication of congestive heart failure at younger age. Mother living, known with history of essential hypertension and obstructive sleep apnea disorder. HOME MEDICATIONS: Listed as recent prescription of Zithromax, Lomotil, Motrin, and prednisone 20 mg b.i.d. CURRENT MEDICATIONS: Which were administered were noted as use of Solu-Medrol 60 mg b.i.d., Mucinex 1200 mg p.o. b.i.d., Lovenox 40 mg subcutaneous daily. Nicotine replacement patches, DuoNeb q.4h. Adderall 5 mg b.i.d. and other p.r.n. meds. DRUG ALLERGIES: Noted with ALLERGIES TO PENICILLIN, FLEXERIL. PHYSICAL EXAMINATION: GENERAL: A 34-year-old female patient, currently sitting on the bed. Height of 5 feet 3 inches, weight of 295 pounds, BMI 52.2. VITAL SIGNS: Temperature 99.6, normal temperature in the last 24 hours, respirations 18-20, heart rate 104-108, sinus tachycardia, blood pressure 157/95-144/68. Pulse ox saturation recorded on rest to room air 96-97% saturation. HEENT: Severe chronic obesity. Head was atraumatic. Eyes nonicterus. Decreased posterior pharyngeal space. CARDIOVASCULAR: S1, S2 audible. LUNGS: Noted with diffuse expiratory wheezing with decreased breath sounds bilaterally. There were no crackles. ABDOMEN: Soft, severely obese. Bowel sounds present. EXTREMITIES: No acute edema, clubbing, cyanosis. MUSCULOSKELETAL: No acute deformities. CENTRAL NERVOUS SYSTEM: Cranial nerves 2-12 intact. LABORATORY DATA: CMP that was done yesterday on admission was noted essentially a normal BUN and creatinine and the CMP. CBC yesterday, WBC count 10.1, hemoglobin and hematocrit normal, platelet count normal, eosinophils of 2.3%. CMP that was done was noted as normal BUN and creatinine, glucose 146. Phosphorus was 2.3. PT and INR was noted as normal. Chest x-ray, 2-view, which was taken in the Emergency Room, was noted without any acute pulmonary infiltration. The lactic acid yesterday was obtained and noted normal at 1.5. IMPRESSION: 1. The patient will be currently admitted to the hospital noted with recurrence of acute exacerbation of bronchial asthma with eosinophilia type. 2. Suboptimal use of the medication for the long-term management of bronchial asthma and chronic O2 dependent and nonadherence with the therapy. 3. Severe morbid obesity as well with BMI greater than 50. 4. Nicotine dependence. [place], [place] REPORT OF CONSULTATION NAME: GURPREET MAGANA UNIT #: [id number] ROOM: 521 DOCTOR: SAFIA TERAN MD,LESLYE BIRTHDATE: [birth year] PLAN OF MANAGEMENT: The patient will be continuing the current dose of Solu-Medrol, bronchodilators, sinus tachycardia should resolve with improvement in the bronchial asthma, still noted significant current wheezing. Bronchodilator will be continued every 4 hours. She would not require any antibiotic. The patient will be started on the Chantix to help manage nicotine withdrawal done at the bedside about tobacco cessation, she was willing to be started on Chantix with tobacco cessation. Other therapy, plan of management, additional treatment changes will be ordered based on the progression of her illness. Thanks for allowing me to participate in care of this patient. LESLYE BAIG MD CM:CONSTR:REPORT OF CONSULTATION 1236 06/10/19 1523 interface
--- NOTE | ~2019-06-09 | PR ---
[place], [place] PROGRESS NOTE NAME: GURPREET MAGANA UNIT #: [id number] ROOM: 521 DOCTOR: SAFIA TERAN MD,LESLYE BIRTHDATE: [birth year] DOS: 06/12/2019 SUBJECTIVE: She reported reduction in symptoms of coughing, wheezing last 24 hours since the dose of corticosteroids has been increased. Denies symptoms of chest pain. The patient was started on the Chantix with a starter pack from yesterday as well. OBJECTIVE: VITAL SIGNS: Normal temperature, respiratory rate 18, heart rate of 109, blood pressure 122/72 recorded this morning. Pulse ox saturation on room air at rest was 93% saturation. HEENT: Examination shows head was atraumatic. Eyes nonicterus. NECK: Supple. CARDIOVASCULAR: S1, S2 audible. LUNGS: Noted without any crackles. Moderate decreased breath sounds with expiratory wheezing, partially decreased from previous examination. ABDOMEN: Soft, nontender. Bowel sounds present. EXTREMITIES: Chronic obesity. IMPRESSION: The patient has been noted with ongoing acute exacerbation of bronchial asthma, responding to treatment. History of chronic nicotine dependence as well. PLAN OF TREATMENT: Continue current plan of management at this time without any changes bronchodilators, oxygen supplementation. She does not have any suicidal ideation or other abnormal symptoms at this time as she was enquired. LESLYE BAIG MD CM:PNTRANS [phone] LESLYE TERAN MD 06/12/19 1724 interface
--- NOTE | ~2019-06-09 | PR ---
[place], [place] PROGRESS NOTE [id number] UN[facility] #: [id number] ROOM: 521 DOCTOR: LESLYE RAMOS MD BIRTHDATE: [birth year] DOS: 06/11/2019 SUBJECTIVE: The patient was seen and examined on 06/11/2019. She has been still noted significant coughing, wheezing, chest congestion and shortness of breath that occurs with exertion the last 24 hours. Minimal improvement reported in the last 24 hours with current medical management. Denies symptoms of fever, chills or hemoptysis. Denies symptoms of nausea, vomiting, diarrhea, abdominal pain. Denies symptoms of hematemesis, melena, or hematochezia. Denies symptoms of headache or diplopia. Denies any abnormal symptoms of psychiatric illness with such as symptoms of depression, general anxiety at the present time. Remaining systems were reviewed. They were noted all negative. OBJECTIVE: VITAL SIGNS: For the patient, which are recorded normal temperature, respiratory rate 18, heart rate 104-100, blood pressure 150/80-138/78. Pulse ox saturation on room air recorded 97% saturation. HEENT: Chronic obesity. Head was atraumatic. Eyes nonicterus. NECK: Supple. CARDIOVASCULAR: S1, S2 audible. LUNGS: Noted with expiratory wheezing bilaterally. Decreased breath sounds. ABDOMEN: Soft, nontender. Bowel sounds present. EXTREMITIES: No new change. SKIN: Visible skin, no lesions or rashes. CENTRAL NERVOUS SYSTEM: Intact. MUSCULOSKELETAL: Without acute deformities. LABORATORY DATA: There were no new labs done today. IMPRESSION: 1. The patient with ongoing severe exacerbation of bronchial asthma, acute tracheobronchitis. 2. Past history of suicidal ideation that was not described at the age of [age] years old, thought to be related to the usual problem in teenager, at that time with anxiety and depression. The patient has been treated by the psych counselor, Psychiatry for years and has not been taking medication. She denies any suicidal ideation, similar symptoms since the first time I remember all those previous symptoms management accurately. 3. Chronic obesity. 4. History of nicotine dependence. PLAN OF MANAGEMENT: Dose of Solu-Medrol will be changed 40 mg every 6 hours at this present time. No changes in the other medical management including bronchodilator will be needed. At this time, the patient will be continued on the Chantix as there was not much suspicion for chronic history of suicidal ideation or attempt of suicide previously reported and discussed with the patient. However, in the home setting, the patient could be discharged on nicotine replacement patches. Extensive counseling for 10 minutes or greater were done at the bedside about tobacco cessation and abstinence for future. The [place], [place] PROGRESS NOTE NAME: GURPREET MAGANA Mandy UNIT #: [id number] ROOM: 521 DOCTOR: LESLYE RAMOS MD BIRTHDATE: [birth year] patient agreed with the tobacco cessation and stated that she would be willing to use the nicotine placement patches upon discharge. LESLYE BAIG MD CM:PNTRANS 1037 [id number] LESLYE TERAN MD 06/11/19 1826 interface
--- NOTE | ~2019-06-09 | PR ---
[place], [place] PROGRESS NOTE NAME: GURPREET MAGANA UNIT #: [id number] ROOM: 521 DOCTOR: SAFIA TERAN MD,LESLYE BIRTHDATE: [birth year] DOS: 06/13/2019 SUBJECTIVE: The patient was noted comfortable at this time. Continued to show reduction of the respiratory symptoms gradually. Denies symptoms of fever, chills, coughing, wheezing, shortness of breath were all resolving. She was continued on high dose of corticosteroids, Solu-Medrol 40 mg every 6 hours. OBJECTIVE: VITAL SIGNS: The patient noted normal temperature, respiratory rate 18, heart rate of , blood pressure 142/89. Pulse oxygen saturation recorded on room air 95% saturation. HEENT: Examination shows chronic obesity. NECK: Supple. Head was atraumatic. CARDIOVASCULAR: S1, S2 audible. LUNGS: The patient was noted with decreased breath sounds, moderate expiratory wheezing noted partially decreased from previous exam. There were no crackles. ABDOMEN: Soft and obese. EXTREMITIES: No acute change. IMPRESSION: Resolving acute exacerbation of bronchial asthma gradually, but very slowly with acute tracheobronchitis, history of nicotine abuse. PLAN OF TREATMENT: No changes in the plan of care at this time. Continue the patient's current therapy as in progress with usual care. Supportive care. LESLYE BAIG MD CM:PNTRANS [phone] LESLYE TERAN MD 06/13/191932 interface
[2019-06-09 20:20] VITALS: BP 157/95
[2019-06-09 21:02] LABS: BASO # 0.1 10*3/uL (0.0-0.1); BASO % 0.5 % (0.0-1.0); EOS # 0.2 10*3/uL (0.0-0.4); EOS % 2.3 % (1.0-4.0); HEMATOCRIT 39.9 % (37.0-47.0); HEMOGLOBIN 13.2 g/dl (12.0-16.0); LYMPH # 2.9 10*3/uL (1.3-4.4); LYMPH % 28.3 % (27.0-41.0); MEAN CELL VOLUME 87.3 fl (81.0-99.0); MEAN CORPUSCULAR HGB 28.9 pg (27.0-31.0); MEAN CORPUSCULAR HGB CONC 33.1 g/dl (33.0-37.0); MONO # 0.8 10*3/uL (0.1-1.0); MONO % 7.6 % (3.0-9.0); NEUT # 6.2 10*3/uL (2.3-7.9); PLATELET COUNT AUTOMATED 250 10*3/uL (130-400); RED BLOOD COUNT 4.57 10*6/uL (4.10-5.10); RED CELL DISTRI WIDTH 12.7 % (0-14.5); WHITE BLOOD COUNT 10.1 10*3/uL (4.8-10.8)
[2019-06-09 21:17] LABS: ALBUMIN 3.6 gm/dl (3.1-4.5); ALKALINE PHOSPHATASE 70 U/L (45-117); BUN 5 mg/dl (7-24); CHLORIDE 106 mmol/L (98-107); CREATININE 0.65 mg/dL (0.55-1.02); POTASSIUM 3.7 mmol/L (3.5-5.1); SGOT/AST 34 IU/L (3-35); SGPT/ALT 67 U/L (12-78); SODIUM 139 mmol/L (136-145); TOTAL PROTEIN 7.2 gm/dL (6.4-8.2)
--- NOTE | 2019-06-09 21:36 | NUR ---
NURSE TO NURSE REPORT GIVEN.PT AWAITING RESULTS OF TESTING.
[2019-06-10] MEDS ORDERED: ADDERALL15 MG PO (00:09)
[2019-06-10 00:10] VITALS: BP 140/74
--- NOTE | 2019-06-10 00:12 | NUR ---
ATTEMPTED TO REACH MARICRUZ, RECEIVING RN. WILL RE-ATTEMPT.
--- NOTE | 2019-06-10 00:13 | NUR ---
SPOKE WITH MARICRUZ TO NOTIFY OF ETA.
--- NOTE | 2019-06-10 00:21 | NUR ---
NURSE TO NURSE TO MARICRUZ AT THE BEDSIDE.
[2019-06-10 00:25] VITALS: BP 144/87
--- NOTE | 2019-06-10 00:25 | NUR ---
A 34, admitted to 5E, under the services of GABRIELE Sun DO with a diagnosis of ASTHMA EXACERBATION. Chief complaint is SHORTNESS OF BREATHE, WHEEZING,NONPROD COUGH. Patient arrived via bed from ER. Monitor applied. Initial assessment completed. Vital signs taken and recorded. GABRIELE SUN DO notified of admission to the unit. Orders received. See assessment for past medical history, medications and allergies. Patient and/or family oriented to unit. [address] visitation policy reviewed. Clothing/patient valuable form completed. MELISSA HARGROVE R
--- NOTE | 2019-06-10 01:10 | NUR ---
PT SITTING UP AT SIDE OF BED. NONPROD COUGH. C/O RIB PAIN BILATERAL RATES PAIN 7 OR 8 ON PAIN SCALE 0-10. MEDICATED WITH NORCO PO PER PRN ORDER, SEE EMAR. CALL LIGHT IN REACH.
--- NOTE | 2019-06-10 02:00 | NUR ---
RESTING N BED WITH EYES CLOSED. RESP-EASY AND REGULAR. MEDICATION SEEMS TO BE EFFECTIVE. CALL LIGHT IN REACH.
--- NOTE | 2019-06-10 04:00 | NUR ---
SLEEPING IN BED. RESP-EASY AND REGULAR. CALL LIGHT IN REACH.
--- NOTE | 2019-06-10 06:00 | NUR ---
RESTING IN BED. RESP-EASY AND REGULAR. NO C/O AT THIS TIME. CALL LIGHT IN REACH.
[2019-06-10 06:24] LABS: HEMATOCRIT 39.1 % (37.0-47.0); HEMOGLOBIN 12.6 g/dl (12.0-16.0); MEAN CELL VOLUME 86.7 fl (81.0-99.0); MEAN CORPUSCULAR HGB 27.9 pg (27.0-31.0); MEAN CORPUSCULAR HGB CONC 32.2 g/dl (33.0-37.0); MEAN PLATELET VOLUME 10.3 fl (9.6-12.3); PLATELET COUNT AUTOMATED 271 10*3/uL (130-400); RED BLOOD COUNT 4.51 10*6/uL (4.10-5.10); RED CELL DISTRI WIDTH 12.7 % (0-14.5); WHITE BLOOD COUNT 7.9 10*3/uL (4.8-10.8)
[2019-06-10 06:27] LABS: ALBUMIN 3.5 gm/dl (3.1-4.5); BUN 6 mg/dl (7-24); CHLORIDE 108 mmol/L (98-107); CHOLESTEROL 146 mg/dL (<200); HDL CHOLESTEROL 44 mg/dl (40-60); LDL CHOLESTEROL 88 mg/dL (9-159); PHOSPHOROUS 2.3 mg/dL (2.5-4.9); POTASSIUM 3.8 mmol/L (3.5-5.1); SGOT/AST 23 IU/L (3-35); SGPT/ALT 61 U/L (12-78); SODIUM 140 mmol/L (136-145); TOTAL PROTEIN 7.2 gm/dL (6.4-8.2); TRIGLYCERIDES 71 mg/dl (<150); VLDL CHOLESTEROL 14 mg/dL (6-40)
[2019-06-10 06:36] LABS: ALKALINE PHOSPHATASE 67 U/L (45-117)
[2019-06-10 06:50] LABS: INTERNATIONAL NORM RATIO 0.9 (2.0-3.5)
[2019-06-10 06:59] LABS: PLATELET SUFFICIENCY NORMAL (NORMAL); TOTAL CELLS COUNTED 100 #CELLS
--- NOTE | 2019-06-10 07:39 | NUR ---
NORCO GIVEN FOR C/O RIB PAIN. 7/10 ON PAIN SCALE, WILL MONITOR.
[2019-06-10 08:28] LABS: VITAMIN D, 25-HYDROXY 23.6 ng/mL (30-100)
--- NOTE | 2019-06-10 08:45 | NUR ---
ELDER EFFECTIVE PER PT.
--- NOTE | 2019-06-10 08:46 | NUR ---
DR. BAIG NOTIFIED OF CONSULT.
[2019-06-10 12:00] VITALS: BP 144/68
--- NOTE | 2019-06-10 12:14 | NUR ---
Garbage Collector Supervisor in to talk to patient. Patient states lives at HOME with . There are [address] in the home. Physician: MARIAM Pharmacy: [facility] [place] [facility] services: NONE Patient's level of ADLs: INDEPENDENT Patient has working utilities: YES DME: NONE Follow-up physician's appointment after d/c: WILL BE MADE BY HOSPITALIST NURSE DIRECTOR ON DISCHARGE Does patient want to access PORTAL?: NO Discharge plan PT LIVES AT HOME WITH HER AND IS INDEPENDENT IN HER CARE. DENIES THAT SHE WILL HAVE NEEDS ON DISCHARGE. STATES SHE WILL RETURN HOME ON DISCHARGE. WILL CONTINUE TO FOLLOW. WILL HAVE A RIDE HOME.. MADHAVI LUNDBERG
--- NOTE | 2019-06-10 15:47 | NUR ---
NORCO GIVEN FOR C/O RIB PAIN WITH COUGH. WILL MONITOR.
[2019-06-10 16:00] VITALS: BP 172/87
--- NOTE | 2019-06-10 18:09 | NUR ---
HYDOCAN GIVEN FOR C/O SORE THROAT. WILL MONITOR.
[2019-06-10 20:00] VITALS: BP 145/86
--- NOTE | 2019-06-10 21:19 | NUR ---
PATIENT MEDICATED WITH NORCO FOR COMPLAINTS OF RIB PAIN FROM COUGHING. WILL CONTINUE TO MONITOR.
[2019-06-11] VITALS: BP 150/82
--- NOTE | 2019-06-11 02:12 | NUR ---
PATIENT MEDICATED WITH HYCODAN SYRUP FOR COUGH. WILL CONTINUE TO MONITOR.
[2019-06-11 08:00] VITALS: BP 138/78
[2019-06-11 12:00] VITALS: BP 143/86
--- NOTE | 2019-06-11 12:03 | NUR ---
PT CONTINUES TO DENY NEEDS AT HOME ON DISCHARGE. WILL CONTINUE TO FOLLOW
[2019-06-11 16:00] VITALS: BP 148/85
[2019-06-11 20:00] VITALS: BP 139/77
--- NOTE | 2019-06-11 20:00 | NUR ---
RESTING IN BED WITH NO ACUTE DISTRESS NOTED. RESPIRATIONS EASY. LUNGS DIMINISHED WITH FORCED EXP WHEEZES. PULSE OX 98% RA. NON-PROD COUGH. OFFERED AND EDUCATED REGARDING TEDS, DECLINED. CALL LIGHT WITHIN REACH. NO VOICED COMPLAINTS
--- NOTE | 2019-06-11 20:58 | NUR ---
24 HR chart check completed.
--- NOTE | 2019-06-11 21:19 | NUR ---
REQUESTED AND RECEIVED NORCO PER PRN ORDER FOR COMPLAINTS OF RIB PAIN RATING A 7 D/T COUGH. CALL LIGHT WITHIN REACH. WILL MONITOR FOR EFFECTIVENESS
--- NOTE | 2019-06-11 23:00 | NUR ---
STATES EARLIER NORCO HELPING WITH PAIN. NO FURTHER VOICED COMPLAINTS
[2019-06-12] VITALS: BP 148/80; BP 148/99
--- NOTE | 2019-06-12 00:18 | NUR ---
REMAINS AWAKE, PLAYING ON PHONE. MEDICATED WITH CEPACOL FOR COUGH. RESPIRATIONS EASY. VSS. CALL LIGHT WITHIN REACH
--- NOTE | 2019-06-12 02:23 | NUR ---
REQUESTED AND RECEIVED HYCODAN PER PRN ORDER TO ASSIST WITH COUGH.
--- NOTE | 2019-06-12 04:00 | NUR ---
MEDS EFFECTIVE. SLEEPING
--- NOTE | 2019-06-12 05:28 | NUR ---
REQUESTED AND RECEIVED NORCO PER PRN ORDER FOR COMPLAINTS OF HEADACHE RATING AN 8 D/T "NO NICOTINE." CALL LIGHT WITHIN REACH. WILL MONITOR FOR EFFECTIVENESS
[2019-06-12 08:00] VITALS: BP 126/72
--- NOTE | 2019-06-12 10:07 | NUR ---
PATIENT COMPLAINING OF A NON PRODUCTIVE COUGH MEDICATED WITH HYCADIN PER ORDERS.
--- NOTE | 2019-06-12 11:15 | NUR ---
PATIENT STATES THAT THE COUGH MED WORKED.
--- NOTE | 2019-06-12 11:45 | NUR ---
PATIENT MEDICATED WITH PO NORCO AT THIS TIME FOR COMPLAINTS OF PAIN IN RIBS D/T COUGH 04/14. WILL REASSESS.
[2019-06-12 12:00] VITALS: BP 144/96
--- NOTE | 2019-06-12 12:45 | NUR ---
PER PATIENT, PRN MEDICATION HAS BEEN EFFECTIVE. NO FURTHER COMPLAINTS AT THIS TIME.
--- NOTE | 2019-06-12 17:26 | NUR ---
COMPLAINING OF HEADACHE 5 ON A SCALE OF 10 MEDICATED WITH NORCO PER ORDERS.
--- NOTE | 2019-06-12 18:28 | NUR ---
NORCO EFFECTIVE PER PATIENT
[2019-06-12 19:39] VITALS: BP 142/74
--- NOTE | 2019-06-12 19:39 | NUR ---
TOOK OVER CARE OF PT, PT SITTING UP IN BED, ALERT ORIENTED AND PLEASANT MOOD. PT GIVEN CEPACOL COUGH DROP AT THIS TIME. PT ALSO REQUESTS ORDERED COUGH SYRUP. ASSESSMENT COMPLETE. RESPIRATIONS EASY/UNLABORED ON ROOM AIR. WILL CONTINUE TO MONITOR. CALL LIGHT IN REACH.
[2019-06-13] VITALS: BP 141/87
--- NOTE | 2019-06-13 05:34 | NUR ---
PT GIVEN HICODAN COUGH SYRUP AT THIS TIME. WILL MONITOR FOR EFFECTIVENESS. CALL LIGHT IN REACH.
--- NOTE | 2019-06-13 06:34 | NUR ---
HICADAN COUGH SYRUP EFFECTIVE PER PT.
--- NOTE | 2019-06-13 07:01 | NUR ---
24 HR chart check completed.
[2019-06-13 09:01] VITALS: BP 142/88
[2019-06-13] MEDS ORDERED: HYCODAN/HYDROMET5 ML PO (11:31)
[2019-06-13] MEDS ORDERED: CEPACOL SORE T1 EACH PO (11:31)
[2019-06-13] MEDS ORDERED: PULMICORT FLEX90 MCG INH (11:31)
[2019-06-13] MEDS ORDERED: VITAMIN D32000 UNI1 PO (11:31)
[2019-06-13] MEDS ORDERED: CHANTIX1 M1 PO (11:31)
[2019-06-13] MEDS ORDERED: PREDNISONE10 MG PO (11:31)
[2019-06-13 12:00] VITALS: BP 142/89
--- NOTE | 2019-06-13 15:25 | NUR ---
Discharge instructions reviewed with patient/family. Patient receptive and verbalizes understanding. Follow-up care arranged. Written instructions given to patient/family. TELEMETRY ROSALINA WAS REMOVED. IV WAS REMOVED. PT WAS PROVIDED ALL INFORMATION TO BE ABLE TO GO HOME. WORK SLIP WAS PROVIDED. PT STATED SHE JUST WANTED TO WALK OUT WITH HER AND DID NOT WANT A WHEELCHAIR. PT HAD NO QUESTIONS AT THIS TIME. OLAYINKA NGUYEN
== END 2019-06-13 15:27 | disposition home or self-care (01) | DRG 202 ==
LOC: ED 20:19 → 5E 23:42 → EDHOLD 23:42 → 5E 06-10 00:05
PROVIDERS: Nurse Practitioner Family; Student in an Organized Health Care Education/Training Program; ADMIT Internal Medicine
DX: J45.21 Mild intermittent asthma with (acute) exacerbation (principal); Z68.43 Body mass index [BMI] 50.0-59.9, adult; R51 Headache; F41.9 Anxiety disorder, unspecified; I10 Essential (primary) hypertension; E66.01 Morbid (severe) obesity due to excess calories; F17.210 Nicotine dependence, cigarettes, uncomplicated; R07.89 Other chest pain; R00.0 Tachycardia, unspecified; E87.8 Other disorders of electrolyte and fluid balance, not elsewhere classified; E83.39 Other disorders of phosphorus metabolism; E55.9 Vitamin D deficiency, unspecified; J20.9 Acute bronchitis, unspecified; D72.1 Eosinophilia; F32.9 Major depressive disorder, single episode, unspecified; F41.1 Generalized anxiety disorder; Z87.440 Personal history of urinary (tract) infections; Z90.89 Acquired absence of other organs; Z82.49 Family history of ischemic heart disease and other diseases of the circulatory system; Z84.1 Family history of disorders of kidney and ureter; Z84.89 Family history of other specified conditions; Z88.0 Allergy status to penicillin; Z88.8 Allergy status to other drugs, medicaments and biological substances; Z79.899 Other long term (current) drug therapy; Z91.09 Other allergy status, other than to drugs and biological substances; Z71.6 Tobacco abuse counseling; Z99.81 Dependence on supplemental oxygen

== ENCOUNTER 2019-07-03 06:42 | Emergency (ER) | payer OTHER ==
[~2019-07-03] VITALS: Wt 131.5 kg
[~2019-07-03 06:42] MED LIST changes: +ADDERALL15 MG PO; +CEPACOL SORE T1 EACH PO; +CHANTIX1 M1 PO; +HYCODAN/HYDROMET5 ML PO; +PULMICORT FLEX90 MCG INH; +VITAMIN D32000 UNI1 PO
[2019-07-03] MEDS ORDERED: ZOFRAN4 MG PO (07:59)
[2019-07-03] MEDS ORDERED: DIFLUCAN150 MG PO (07:59)
[2019-07-03] MEDS ORDERED: KEFLEX500 M1 PO (07:59)
== END 2019-07-03 08:20 | disposition home or self-care (01) ==
LOC: ED 06:42
DX: J02.9 Acute pharyngitis, unspecified (principal); G43.909 Migraine, unspecified, not intractable, without status migrainosus; R50.9 Fever, unspecified; J45.909 Unspecified asthma, uncomplicated; I10 Essential (primary) hypertension; E66.01 Morbid (severe) obesity due to excess calories; F17.200 Nicotine dependence, unspecified, uncomplicated; Z68.42 Body mass index [BMI] 45.0-49.9, adult; Z88.0 Allergy status to penicillin; Z88.8 Allergy status to other drugs, medicaments and biological substances

== ENCOUNTER 2020-11-26 13:17 | Emergency (ER) | payer OTHER ==
[~2020-11-26] VITALS: Wt 122.5 kg
[~2020-11-26 13:17] MED LIST changes: +DIFLUCAN150 MG PO; +KEFLEX500 M1 PO
[2020-11-26 14:18] LABS: BILIRUBIN Negative (Negative); BLOOD 3+ (Negative); CLARITY Clear (Clear); COLOR Yellow (Yellow); GLUCOSE Negative (Negative); KETONE Negative (Negative); LEUKO ESTERASE Negative (Negative); NITRITE Negative (Negative); SPECIFIC GRAVITY 1.025 (1.001-1.030); UROBILINOGEN 0.2 E.U./dl (0.0-1.0)
[2020-11-26 14:26] LABS: MUCOUS TRACE; RBC TNTC rbc/hpf (0-2)
== END 2020-11-26 15:01 | disposition home or self-care (01) ==
LOC: ED 13:17
PROVIDERS: Emergency Medicine
DX: N94.6 Dysmenorrhea, unspecified (principal); F32.9 Major depressive disorder, single episode, unspecified; F41.9 Anxiety disorder, unspecified; J45.909 Unspecified asthma, uncomplicated; Z88.0 Allergy status to penicillin; Z88.8 Allergy status to other drugs, medicaments and biological substances; Z90.49 Acquired absence of other specified parts of digestive tract; Z79.899 Other long term (current) drug therapy

== ENCOUNTER 2021-02-06 19:22 | Emergency (ER) | payer OTHER ==
[~2021-02-06] VITALS: Ht 160 cm; Wt 122.5 kg
== END 2021-02-06 19:42 | disposition left against medical advice (07) ==
LOC: ED 19:22
DX: K08.89 Other specified disorders of teeth and supporting structures (principal); Z53.21 Procedure and treatment not carried out due to patient leaving prior to being seen by health care provider

== ENCOUNTER 2022-03-05 17:11 | Emergency (ER) | payer OTHER ==
[~2022-03-05] VITALS: Ht 160 cm; Wt 113.4 kg
[2022-03-05 20:47] LABS: BASO % 0.2 % (0.0-1.0); EOS % 0.2 % (1.0-4.0); HEMATOCRIT 37.5 % (37.0-47.0); LYMPH # 1.5 10*3/uL (1.3-4.4); LYMPH % 17.4 % (27.0-41.0); MEAN CELL VOLUME 85.2 fl (81.0-99.0); MEAN CORPUSCULAR HGB 27.5 pg (27.0-31.0); MEAN CORPUSCULAR HGB CONC 32.3 g/dl (33.0-37.0); MEAN PLATELET VOLUME 10.1 fl (9.6-12.3); MONO # 0.6 10*3/uL (0.1-1.0); MONO % 7.4 % (3.0-9.0); NEUT # 6.2 10*3/uL (2.3-7.9); NEUT % 74.6 % (47.0-73.0); PLATELET COUNT AUTOMATED 301 10*3/uL (130-400); RED CELL DISTRI WIDTH 13.4 % (0-14.5); WHITE BLOOD COUNT 8.3 10*3/uL (4.8-10.8)
[2022-03-05 21:03] LABS: ALKALINE PHOSPHATASE 61 U/L (45-117); BUN 4 mg/dl (7-24); CHLORIDE 106 mmol/L (98-107); CREATININE 0.54 mg/dL (0.55-1.02); POTASSIUM 3.5 mmol/L (3.5-5.1); SGOT/AST 15 IU/L (3-35); SGPT/ALT 23 U/L (12-78); SODIUM 139 mmol/L (136-145); TOTAL PROTEIN 6.3 gm/dL (6.4-8.2)
== END 2022-03-05 23:39 | disposition home or self-care (01) ==
LOC: ED 17:11
PROVIDERS: Nurse Practitioner
DX: B34.9 Viral infection, unspecified (principal); Z20.822 Contact with and (suspected) exposure to COVID-19; R11.2 Nausea with vomiting, unspecified; F17.200 Nicotine dependence, unspecified, uncomplicated; Z79.899 Other long term (current) drug therapy; Z88.0 Allergy status to penicillin

== ENCOUNTER 2023-02-13 21:49 | Emergency (ER) | payer OTHER ==
[~2023-02-13] VITALS: Ht 160 cm; Wt 113.4 kg
[2023-02-13 23:10] LABS: BILIRUBIN Negative (Negative); BLOOD Negative (Negative); CLARITY Clear (Clear); COLOR Yellow (Yellow); GLUCOSE Negative (Negative); KETONE Negative (Negative); LEUKO ESTERASE Negative (Negative); NITRITE Negative (Negative); SPECIFIC GRAVITY <= 1.005 (1.001-1.030); UROBILINOGEN 0.2 E.U./dl (0.0-1.0)
[2023-02-13 23:10] LABS: BASO # 0.1 10*3/uL (0.0-0.1); BASO % 0.5 % (0.0-1.0); EOS # 0.1 10*3/uL (0.0-0.4); HEMATOCRIT 38.3 % (37.0-47.0); LYMPH # 4.8 10*3/uL (1.3-4.4); LYMPH % 38.7 % (27.0-41.0); MEAN CELL VOLUME 89.3 fl (81.0-99.0); MEAN CORPUSCULAR HGB 29.1 pg (27.0-31.0); MEAN CORPUSCULAR HGB CONC 32.6 g/dl (33.0-37.0); MEAN PLATELET VOLUME 9.4 fl (9.6-12.3); MONO # 0.8 10*3/uL (0.1-1.0); MONO % 6.7 % (3.0-9.0); NEUT # 6.6 10*3/uL (2.3-7.9); NEUT % 52.6 % (47.0-73.0); PLATELET COUNT AUTOMATED 339 10*3/uL (130-400); RED BLOOD COUNT 4.29 10*6/uL (4.10-5.10); RED CELL DISTRI WIDTH 13.6 % (0-14.5); WHITE BLOOD COUNT 12.5 10*3/uL (4.8-10.8)
[2023-02-13 23:31] LABS: ALKALINE PHOSPHATASE 49 U/L (46-116); BUN 7 mg/dl (9-23); CHLORIDE 108 mmol/L (98-107); POTASSIUM 3.8 mmol/L (3.4-5.1); SGPT/ALT 19 U/L (10-49); TOTAL PROTEIN 6.5 gm/dL (6.0-8.0)
[2023-02-13 23:35] LABS: BACTERIA TRACE; WBC 0-2 wbc/hpf (0-5)
== END 2023-02-14 00:46 | disposition home or self-care (01) ==
LOC: ED 21:49
PROVIDERS: Emergency Medicine
DX: O26.891 Other specified pregnancy related conditions, first trimester (principal); R19.7 Diarrhea, unspecified; E86.0 Dehydration; Z3A.01 Less than 8 weeks gestation of pregnancy; E66.01 Morbid (severe) obesity due to excess calories; J45.909 Unspecified asthma, uncomplicated; I10 Essential (primary) hypertension; F17.200 Nicotine dependence, unspecified, uncomplicated; Z88.0 Allergy status to penicillin; Z88.8 Allergy status to other drugs, medicaments and biological substances; Z90.89 Acquired absence of other organs

== ENCOUNTER 2024-02-16 22:42 | Emergency (ER) | payer OTHER ==
[~2024-02-16] VITALS: Ht 160 cm; Wt 117.9 kg
[2024-02-16 23:16] LABS: BILIRUBIN Negative (Negative); BLOOD Negative (Negative); CLARITY Clear (Clear); COLOR Yellow (Yellow); GLUCOSE Negative (Negative); KETONE Negative (Negative); LEUKO ESTERASE Negative (Negative); NITRITE Negative (Negative); SPECIFIC GRAVITY 1.015 (1.001-1.030); UROBILINOGEN 0.2 E.U./dl (0.0-1.0)
[2024-02-16 23:24] LABS: EPITHELIAL CELLS 21-30
[2024-02-16 23:25] LABS: BACTERIA TRACE
[2024-02-17] MEDS ORDERED: ZITHROMAX250 MG PO (00:13)
[2024-02-17] MEDS ORDERED: AZITHROMYCIN 250 MG TAB PO ONE (00:15)
== END 2024-02-17 00:33 | disposition home or self-care (01) ==
LOC: ED 22:42
PROVIDERS: Emergency Medicine
DX: J02.9 Acute pharyngitis, unspecified (principal); F41.9 Anxiety disorder, unspecified; J45.909 Unspecified asthma, uncomplicated; E78.00 Pure hypercholesterolemia, unspecified; E83.39 Other disorders of phosphorus metabolism; I10 Essential (primary) hypertension; F32.A Depression, unspecified; G43.909 Migraine, unspecified, not intractable, without status migrainosus; Z88.8 Allergy status to other drugs, medicaments and biological substances; Z90.89 Acquired absence of other organs; Z98.890 Other specified postprocedural states; Z72.0 Tobacco use

== ENCOUNTER → 2024-04-24 | Outpatient (CLI) | payer OTHER ==
[2024-04-24 10:03] LABS: BASO # 0.1 10*3/uL (0.0-0.1); BASO % 0.4 % (0.0-1.0); EOS # 0.1 10*3/uL (0.0-0.4); EOS % 1.1 % (1.0-4.0); HEMATOCRIT 38.8 % (37.0-47.0); LYMPH # 3.2 10*3/uL (1.3-4.4); LYMPH % 28.2 % (27.0-41.0); MEAN CELL VOLUME 85.1 fl (81.0-99.0); MEAN CORPUSCULAR HGB 26.5 pg (27.0-31.0); MEAN CORPUSCULAR HGB CONC 31.2 g/dl (33.0-37.0); MEAN PLATELET VOLUME 9.2 fl (9.6-12.3); MONO # 0.7 10*3/uL (0.1-1.0); MONO % 5.8 % (3.0-9.0); NEUT # 7.2 10*3/uL (2.3-7.9); NEUT % 64.1 % (47.0-73.0); PLATELET COUNT AUTOMATED 384 10*3/uL (130-400); RED BLOOD COUNT 4.56 10*6/uL (4.10-5.10); RED CELL DISTRI WIDTH 14.5 % (0-14.5); WHITE BLOOD COUNT 11.3 10*3/uL (4.8-10.8)
== END | disposition home or self-care (01) ==
LOC: US 08:30 → LAB 08:42
PROVIDERS: ATTEND Nurse Practitioner Women's Health
DX: N93.9 Abnormal uterine and vaginal bleeding, unspecified (principal); R53.83 Other fatigue

== ENCOUNTER → 2024-12-31 | Outpatient (CLI) | payer OTHER | END | disposition home or self-care (01) | LOC: RAD 17:23 | PROVIDERS: ATTEND Chiropractor | DX: M54.50 Low back pain, unspecified (principal) ==

== ENCOUNTER 2025-01-18 15:31 | Emergency (ER) | payer OTHER ==
[~2025-01-18] VITALS: Ht 160 cm
[2025-01-18] MEDS ORDERED: CARVEDILOL6.25 MG PO (16:30)
[2025-01-18] MEDS ORDERED: OMEPRAZOLE40 MG PO (16:31)
[2025-01-18] MEDS ORDERED: RIZATRIPTAN5 MG PO (16:31)
[2025-01-18] MEDS ORDERED: NORETHINDRONE PO (16:31)
[2025-01-18] MEDS ORDERED: ETHINYL ESTRADIOL PO (16:31)
[2025-01-18] MEDS ORDERED: hydrALAZINE hydrochloride 20 MG/ML VIAL IV ONE (17:45)
[2025-01-18 17:58] LABS: BASO % 0.4 % (0.0-1.0); EOS # 0.1 10*3/uL (0.0-0.4); HEMATOCRIT 33.1 % (37.0-47.0); MEAN CORPUSCULAR HGB 25.8 pg (27.0-31.0); MEAN CORPUSCULAR HGB CONC 31.1 g/dl (33.0-37.0); MEAN PLATELET VOLUME 9.2 fl (9.6-12.3); MONO # 0.6 10*3/uL (0.1-1.0); MONO % 5.3 % (3.0-9.0); NEUT # 7.3 10*3/uL (2.3-7.9); NEUT % 65.2 % (47.0-73.0); PLATELET COUNT AUTOMATED 359 10*3/uL (130-400); RED BLOOD COUNT 3.99 10*6/uL (4.10-5.10); RED CELL DISTRI WIDTH 14.5 % (0-14.5); WHITE BLOOD COUNT 11.1 10*3/uL (4.8-10.8)
[2025-01-18 18:09] LABS: ACT PARTIAL THROMBO TIME 24.4 SECONDS (20.0-32.1)
[2025-01-18 18:19] LABS: BUN 9 mg/dl (9-23); CHLORIDE 103 mmol/L (98-107); POTASSIUM 3.8 mmol/L (3.4-5.1)
[2025-01-18 18:20] LABS: BETA-HCG, QUANT < 3.0 mIU/mL (3-10)
[2025-01-18] MEDS ORDERED: LISINOPRIL10 M1 PO (20:20)
== END 2025-01-18 20:25 | disposition home or self-care (01) ==
LOC: ED 15:31
PROVIDERS: Internal Medicine
DX: R07.89 Other chest pain (principal); I10 Essential (primary) hypertension; R10.2 Pelvic and perineal pain; J45.909 Unspecified asthma, uncomplicated; F41.9 Anxiety disorder, unspecified; Z79.899 Other long term (current) drug therapy; Z88.0 Allergy status to penicillin; Z88.8 Allergy status to other drugs, medicaments and biological substances; Z90.89 Acquired absence of other organs; Z98.890 Other specified postprocedural states

== ENCOUNTER 2025-01-26 23:23 | Inpatient (IN) | payer OTHER ==
[~2025-01-26] VITALS: Ht 160 cm; Wt 153.0 kg
[~2025-01-26 23:23] MED LIST changes: +CARVEDILOL6.25 MG PO; +ETHINYL ESTRADIOL PO; +LISINOPRIL10 M1 PO; +NORETHINDRONE PO; +OMEPRAZOLE40 MG PO; +RIZATRIPTAN5 MG PO
[2025-01-26 23:48] VITALS: BP 159/101
[2025-01-27 00:43] LABS: HEMATOCRIT 37.3 % (37.0-47.0); MANUAL DIFF REFLEX YES; MEAN CELL VOLUME 81.3 fl (81.0-99.0); MEAN CORPUSCULAR HGB 25.5 pg (27.0-31.0); MEAN CORPUSCULAR HGB CONC 31.4 g/dl (33.0-37.0); MEAN PLATELET VOLUME 9.4 fl (9.6-12.3); PLATELET COUNT AUTOMATED 453 10*3/uL (130-400); RED BLOOD COUNT 4.59 10*6/uL (4.10-5.10); RED CELL DISTRI WIDTH 14.5 % (0-14.5); WHITE BLOOD COUNT 19.6 10*3/uL (4.8-10.8)
[2025-01-27 01:03] LABS: ALKALINE PHOSPHATASE 55 U/L (46-116); BUN 15 mg/dl (9-23); CHLORIDE 104 mmol/L (98-107); LIPASE 27 U/L (12-53); SGPT/ALT 21 U/L (5-49); TOTAL PROTEIN 6.6 gm/dL (6.0-8.0)
[2025-01-27 01:05] LABS: PLATELET SUFFICIENCY HIGH (NORMAL); TOTAL CELLS COUNTED 100 #CELLS
[2025-01-27] MEDS ORDERED: Ondansetron Hydrochloride 4 MG TAB SL ONE (01:25)
[2025-01-27] MEDS ORDERED: SODIUM CHLORIDE 0.9% 1,000 ML IV ONE (01:45)
[2025-01-27] MEDS ORDERED: diazePAM 10 MG/2 ML SYR IV ONE (02:10)
[2025-01-27] MEDS ORDERED: Ketorolac Tromethamine 30 MG/ML VIAL IV ONE (02:15)
[2025-01-27] MEDS ORDERED: LEADER NATUR1000 MCG PO (04:49)
[2025-01-27] MEDS ORDERED: FERROUS SULFAT325 MG PO (04:49)
[2025-01-27] MEDS ORDERED: ACETAMINOPHEN 650 MG SUPP R PRN (04:50)
[2025-01-27] MEDS ORDERED: Ondansetron Hydrochloride 4 MG/2 ML VIAL IV PRN (04:50)
[2025-01-27] MEDS ORDERED: AIRSUPRA 90-810.7 GM INH (04:51)
[2025-01-27] MEDS ORDERED: LEVOFLOXACIN 150 ML IV SCH (05:15)
[2025-01-27] MEDS ORDERED: SODIUM CHLORIDE 0.9% 500 ML IV ONE (05:25)
[2025-01-27 05:44] VITALS: BP 127/59
[2025-01-27 05:49] LABS: ALKALINE PHOSPHATASE 53 U/L (46-116); BUN 15 mg/dl (9-23); CHLORIDE 103 mmol/L (98-107); CHOLESTEROL 160 mg/dL (<200); FREE T4 1.19 ng/dl (0.89-1.76); LDL CHOLESTEROL 78 mg/dL (9-159); SGPT/ALT 20 U/L (5-49); TOTAL PROTEIN 6.5 gm/dL (6.0-8.0); TRIGLYCERIDES 99 mg/dl (<150)
[2025-01-27] MEDS ORDERED: metroNIDAZOLE 100 ML IV SCH (06:00)
[2025-01-27 06:12] LABS: BASO % 0.2 % (0.0-1.0); HEMATOCRIT 35.8 % (37.0-47.0); MEAN CELL VOLUME 82.5 fl (81.0-99.0); MEAN CORPUSCULAR HGB 25.1 pg (27.0-31.0); MEAN CORPUSCULAR HGB CONC 30.4 g/dl (33.0-37.0); MEAN PLATELET VOLUME 9.9 fl (9.6-12.3); MONO # 0.9 10*3/uL (0.1-1.0); MONO % 4.7 % (3.0-9.0); NEUT # 15.5 10*3/uL (2.3-7.9); NEUT % 82.6 % (47.0-73.0); PLATELET COUNT AUTOMATED 437 10*3/uL (130-400); RED BLOOD COUNT 4.34 10*6/uL (4.10-5.10); RED CELL DISTRI WIDTH 14.6 % (0-14.5); WHITE BLOOD COUNT 18.8 10*3/uL (4.8-10.8)
[2025-01-27] MEDS ORDERED: IOHEXOL 350 MG/ML 100 ML VIAL IV ONE ×2 (06:55→07:14)
[2025-01-27] MEDS ORDERED: SODIUM CHLORIDE 0.9% 100 ML BAG IV ONE (06:55)
[2025-01-27] MEDS ORDERED: SODIUM CHLORIDE 0.9% 100 ML IV ONE (07:14)
[2025-01-27 08:48] VITALS: BP 154/83
[2025-01-27] MEDS ORDERED: Enoxaparin Sodium 40 MG/0.4 ML SYR SC SCH (10:00)
[2025-01-27 10:46] LABS: BILIRUBIN Negative (Negative); BLOOD Negative (Negative); CLARITY Clear (Clear); COLOR Yellow (Yellow); GLUCOSE Negative (Negative); KETONE Negative (Negative); LEUKO ESTERASE Negative (Negative); NITRITE Negative (Negative); SPECIFIC GRAVITY >= 1.030 (1.001-1.030); UROBILINOGEN 0.2 E.U./dl (0.0-1.0)
[2025-01-27 11:13] LABS: BACTERIA TRACE; RBC 0-2 rbc/hpf (0-2)
[2025-01-27] MEDS ORDERED: SODIUM CHLORIDE 0.9% 1,000 ML IV SCH (12:50)
[2025-01-27] MEDS ORDERED: Nicotine 14 MG PATCH T SCH (14:00)
[2025-01-27 16:00] VITALS: BP 131/64
[2025-01-27 20:00] VITALS: BP 191/88
[2025-01-28] VITALS: BP 188/96
[2025-01-28 04:00] VITALS: BP 176/90
[2025-01-28] MEDS ORDERED: Ketorolac Tromethamine 30 MG/ML VIAL IV ONE (04:05)
[2025-01-28 06:30] LABS: BASO % 0.1 % (0.0-1.0); HEMATOCRIT 35.9 % (37.0-47.0); MEAN CELL VOLUME 83.5 fl (81.0-99.0); MEAN CORPUSCULAR HGB CONC 31.2 g/dl (33.0-37.0); MEAN PLATELET VOLUME 9.7 fl (9.6-12.3); MONO # 0.4 10*3/uL (0.1-1.0); MONO % 2.3 % (3.0-9.0); NEUT # 13.8 10*3/uL (2.3-7.9); NEUT % 88.9 % (47.0-73.0); PLATELET COUNT AUTOMATED 412 10*3/uL (130-400); RED CELL DISTRI WIDTH 14.7 % (0-14.5); WHITE BLOOD COUNT 15.5 10*3/uL (4.8-10.8)
[2025-01-28 08:00] VITALS: BP 156/83
[2025-01-28 08:00] LABS: BUN 14 mg/dl (9-23); CHLORIDE 102 mmol/L (98-107)
[2025-01-28 08:10] LABS: POTASSIUM 4.5 mmol/L (3.4-5.1)
[2025-01-28 12:00] VITALS: BP 138/76
[2025-01-28] MEDS ORDERED: Ketorolac Tromethamine 15 MG/ML VIAL IV ONE ×2 (13:20→21:25)
[2025-01-28 16:00] VITALS: BP 130/70
[2025-01-28 20:00] VITALS: BP 148/60
[2025-01-29] VITALS: BP 148/22
[2025-01-29 08:00] VITALS: BP 130/82
[2025-01-29 08:27] LABS: BASO # 0.1 10*3/uL (0.0-0.1); BASO % 0.5 % (0.0-1.0); EOS # 0.3 10*3/uL (0.0-0.4); EOS % 2.4 % (1.0-4.0); HEMATOCRIT 32.6 % (37.0-47.0); MEAN CORPUSCULAR HGB 25.7 pg (27.0-31.0); MEAN PLATELET VOLUME 9.2 fl (9.6-12.3); MONO # 0.6 10*3/uL (0.1-1.0); MONO % 5.8 % (3.0-9.0); NEUT # 6.7 10*3/uL (2.3-7.9); NEUT % 64.5 % (47.0-73.0); PLATELET COUNT AUTOMATED 396 10*3/uL (130-400); RED BLOOD COUNT 3.93 10*6/uL (4.10-5.10); RED CELL DISTRI WIDTH 14.6 % (0-14.5); WHITE BLOOD COUNT 10.5 10*3/uL (4.8-10.8)
[2025-01-29] MEDS ORDERED: LISINOPRIL 10 MG TAB PO SCH (10:00)
[2025-01-29 12:00] VITALS: BP 159/85
[2025-01-29 16:00] VITALS: BP 138/70
[2025-01-29 20:00] VITALS: BP 174/85
[2025-01-29] MEDS ORDERED: hydrALAZINE hydrochloride 20 MG/ML VIAL IV ONE (20:30)
[2025-01-30] VITALS: BP 165/82
[2025-01-30 04:00] VITALS: BP 145/83
[2025-01-30 08:00] VITALS: BP 160/86
[2025-01-30] MEDS ORDERED: LEVOFLOXACIN750 M2 PO (12:44)
[2025-01-30] MEDS ORDERED: METRONIDAZOLE500 M1 PO (12:44)
== END 2025-01-30 13:00 | disposition home or self-care (01) | DRG 872 ==
LOC: ED 23:23 → EDHOLD 01-27 03:53 → 5E 01-27 03:53
PROVIDERS: Internal Medicine; Student in an Organized Health Care Education/Training Program; ADMIT Internal Medicine; ATTEND Internal Medicine
DX: A41.9 Sepsis, unspecified organism (principal); R18.8 Other ascites; E44.1 Mild protein-calorie malnutrition; K56.699 Other intestinal obstruction unspecified as to partial versus complete obstruction; Z68.43 Body mass index [BMI] 50.0-59.9, adult; I10 Essential (primary) hypertension; F17.210 Nicotine dependence, cigarettes, uncomplicated; J45.20 Mild intermittent asthma, uncomplicated; D50.9 Iron deficiency anemia, unspecified; K21.9 Gastro-esophageal reflux disease without esophagitis; R73.9 Hyperglycemia, unspecified; K76.0 Fatty (change of) liver, not elsewhere classified; Z88.0 Allergy status to penicillin; Z88.8 Allergy status to other drugs, medicaments and biological substances; Z79.899 Other long term (current) drug therapy; Z82.49 Family history of ischemic heart disease and other diseases of the circulatory system

== ENCOUNTER 2025-02-26 20:28 | Emergency (ER) | payer OTHER ==
[~2025-02-26] VITALS: Ht 160 cm; Wt 145.1 kg
[~2025-02-26 20:28] MED LIST changes: +AIRSUPRA 90-810.7 GM INH; +FERROUS SULFAT325 MG PO; +LEADER NATUR1000 MCG PO; +LEVOFLOXACIN750 M2 PO; +METRONIDAZOLE500 M1 PO
[2025-02-26] MEDS ORDERED: SODIUM CHLORIDE 0.9% 1,000 ML IV ONE (21:35)
[2025-02-26] MEDS ORDERED: Ondansetron Hydrochloride 4 MG/2 ML VIAL IV ONE (21:35)
[2025-02-26] MEDS ORDERED: Ketorolac Tromethamine 30 MG/ML VIAL IV ONE (21:35)
[2025-02-26 22:20] LABS: HEMATOCRIT 42.8 % (37.0-47.0); MEAN CELL VOLUME 82.6 fl (81.0-99.0); MEAN CORPUSCULAR HGB 24.9 pg (27.0-31.0); MEAN CORPUSCULAR HGB CONC 30.1 g/dl (33.0-37.0); MEAN PLATELET VOLUME 10.1 fl (9.6-12.3); PLATELET COUNT AUTOMATED 502 10*3/uL (130-400); RED BLOOD COUNT 5.18 10*6/uL (4.10-5.10); RED CELL DISTRI WIDTH 14.6 % (0-14.5); WHITE BLOOD COUNT 24.5 10*3/uL (4.8-10.8)
[2025-02-26 22:26] LABS: MANUAL DIFF REFLEX YES
[2025-02-26 22:30] LABS: ALKALINE PHOSPHATASE 69 U/L (46-116); BUN 15 mg/dl (9-23); CHLORIDE 101 mmol/L (98-107); POTASSIUM 4.1 mmol/L (3.4-5.1); SGPT/ALT 87 U/L (5-49); TOTAL PROTEIN 7.6 gm/dL (6.0-8.0)
[2025-02-26 22:42] LABS: PLATELET SUFFICIENCY HIGH (NORMAL); TOTAL CELLS COUNTED 100 #CELLS
[2025-02-26] MEDS ORDERED: LEVOFLOXACIN 150 ML IV ONE (23:05)
[2025-02-26] MEDS ORDERED: metroNIDAZOLE 100 ML IV ONE ×2 (23:05→23:42)
[2025-02-26] MEDS ORDERED: FAMOTIDINE 50 ML IV ONE (23:05)
[2025-02-27] MEDS ORDERED: SODIUM CHLORIDE 0.9% 1,000 ML IV ONE (00:10)
[2025-02-27 02:48] LABS: BILIRUBIN Negative (Negative); BLOOD Negative (Negative); CLARITY Clear (Clear); COLOR Yellow (Yellow); GLUCOSE Negative (Negative); KETONE Trace (Negative); LEUKO ESTERASE Negative (Negative); NITRITE Negative (Negative); SPECIFIC GRAVITY 1.025 (1.001-1.030)
[2025-02-27 03:24] LABS: WBC 0-2 wbc/hpf (0-5)
[2025-02-27] MEDS ORDERED: Ondansetron4 MG PO (03:48)
[2025-02-27] MEDS ORDERED: Ondansetron Hydrochloride 4 MG/2 ML VIAL IV ONE (03:50)
[2025-02-27] MEDS ORDERED: Ketorolac Tromethamine 30 MG/ML VIAL IV ONE (03:50)
== END 2025-02-27 04:07 | disposition home or self-care (01) ==
LOC: ED 20:28
PROVIDERS: Nurse Practitioner
DX: E87.20 Acidosis, unspecified (principal); R10.9 Unspecified abdominal pain; R11.2 Nausea with vomiting, unspecified; D72.829 Elevated white blood cell count, unspecified; I10 Essential (primary) hypertension; J45.909 Unspecified asthma, uncomplicated; F32.A Depression, unspecified; F41.9 Anxiety disorder, unspecified; F17.200 Nicotine dependence, unspecified, uncomplicated; Z79.899 Other long term (current) drug therapy; Z88.0 Allergy status to penicillin; Z88.8 Allergy status to other drugs, medicaments and biological substances; Z90.89 Acquired absence of other organs; Z98.890 Other specified postprocedural states

== ENCOUNTER 2025-02-28 01:53 | Inpatient (IN) | payer OTHER ==
[~2025-02-28] VITALS: Ht 160 cm; Wt 143.8 kg
[~2025-02-28 01:53] MED LIST changes: +Ondansetron4 MG PO
[2025-02-28 02:04] VITALS: BP 135/70
[2025-02-28] MEDS ORDERED: IOHEXOL 300 MG/ML 100 ML VIAL IV ONE (02:15)
[2025-02-28] MEDS ORDERED: IOHEXOL 9 MG/ML (IODINE) ORAL SOLUTION PO ONE (02:15)
[2025-02-28 02:26] LABS: BASO % 0.2 % (0.0-1.0); EOS # 0.2 10*3/uL (0.0-0.4); EOS % 1.1 % (1.0-4.0); MEAN CELL VOLUME 81.3 fl (81.0-99.0); MEAN CORPUSCULAR HGB 25.1 pg (27.0-31.0); MEAN CORPUSCULAR HGB CONC 30.8 g/dl (33.0-37.0); MEAN PLATELET VOLUME 9.6 fl (9.6-12.3); MONO # 0.8 10*3/uL (0.1-1.0); MONO % 4.7 % (3.0-9.0); NEUT # 13.2 10*3/uL (2.3-7.9); NEUT % 78.3 % (47.0-73.0); PLATELET COUNT AUTOMATED 414 10*3/uL (130-400); RED BLOOD COUNT 4.43 10*6/uL (4.10-5.10); RED CELL DISTRI WIDTH 14.5 % (0-14.5); WHITE BLOOD COUNT 16.8 10*3/uL (4.8-10.8)
[2025-02-28 02:47] LABS: ALKALINE PHOSPHATASE 55 U/L (46-116); BUN 11 mg/dl (9-23); CHLORIDE 102 mmol/L (98-107); LIPASE 24 U/L (12-53); POTASSIUM 3.5 mmol/L (3.4-5.1); SGPT/ALT 91 U/L (5-49); TOTAL PROTEIN 6.7 gm/dL (6.0-8.0)
[2025-02-28] MEDS ORDERED: Ondansetron Hydrochloride 4 MG/2 ML VIAL IV ONE ×2 (02:50→06:00)
[2025-02-28] MEDS ORDERED: SODIUM CHLORIDE 0.9% 1,000 ML IV ONE (03:20)
[2025-02-28 03:27] LABS: BILIRUBIN Negative (Negative); BLOOD Negative (Negative); CLARITY Clear (Clear); COLOR Yellow (Yellow); GLUCOSE Negative (Negative); KETONE Trace (Negative); LEUKO ESTERASE Negative (Negative); NITRITE Negative (Negative); UROBILINOGEN 0.2 E.U./dl (0.0-1.0)
[2025-02-28 03:35] LABS: BACTERIA TRACE; URINE AMPHETAMINES Negative (1000ng/ml); URINE BARBITURATES Negative (200ng/ml); URINE BENZODIAZEPINES Negative (200ng/ml); URINE CANNABINOIDS (THC) Negative (50ng/ml); URINE COCAINE Negative (300ng/ml); URINE METHADONE Negative (300ng/ml); URINE OPIATES Positive (300ng/ml); URINE PHENCYCLIDINE Negative (25ng/ml)
[2025-02-28] MEDS ORDERED: cefTRIAXone Sodium 1 GM/10 ML SYR IV ONE (07:20)
[2025-02-28] MEDS ORDERED: MORPHINE Sulfate 2 MG/ML SYR IV ONE (07:20)
[2025-02-28] MEDS ORDERED: metroNIDAZOLE 100 ML IV ONE (07:25)
[2025-02-28] MEDS ORDERED: Magnesium Hydroxide 30 ML UDC PO PRN (08:25)
[2025-02-28] MEDS ORDERED: ACETAMINOPHEN 325 MG TAB PO PRN (08:25)
[2025-02-28] MEDS ORDERED: BISACODYL 5 MG TAB PO PRN (08:25)
[2025-02-28] MEDS ORDERED: ACETAMINOPHEN 650 MG SUPP R PRN (08:25)
[2025-02-28] MEDS ORDERED: MORPHINE Sulfate 2 MG/ML SYR IV PRN (08:25)
[2025-02-28 08:30] VITALS: BP 180/105
[2025-02-28] MEDS ORDERED: SODIUM CHLORIDE 0.9% 1,000 ML IV SCH (09:05)
[2025-02-28 09:25] VITALS: BP 139/76
[2025-02-28] MEDS ORDERED: metroNIDAZOLE 100 ML IV SCH (14:00)
[2025-02-28 17:02] VITALS: BP 125/71
[2025-02-28] MEDS ORDERED: CIPROFLOXACIN 200 ML IV SCH (22:00)
[2025-02-28 22:48] VITALS: BP 136/84
[2025-03-01] VITALS (9 sets, daily range): BP systolic 143–176; BP diastolic 75–97
[2025-03-01] MEDS ORDERED: OMEPRAZOLE 20 MG CAP PO SCH (06:00)
[2025-03-01 06:08] LABS: BASO % 0.3 % (0.0-1.0); EOS # 0.2 10*3/uL (0.0-0.4); EOS % 1.7 % (1.0-4.0); MEAN CELL VOLUME 81.5 fl (81.0-99.0); MEAN CORPUSCULAR HGB 25.2 pg (27.0-31.0); MEAN CORPUSCULAR HGB CONC 30.9 g/dl (33.0-37.0); MEAN PLATELET VOLUME 9.5 fl (9.6-12.3); MONO # 0.6 10*3/uL (0.1-1.0); MONO % 6.1 % (3.0-9.0); NEUT # 7.1 10*3/uL (2.3-7.9); NEUT % 71.1 % (47.0-73.0); PLATELET COUNT AUTOMATED 357 10*3/uL (130-400); RED BLOOD COUNT 4.05 10*6/uL (4.10-5.10); RED CELL DISTRI WIDTH 14.6 % (0-14.5); WHITE BLOOD COUNT 9.9 10*3/uL (4.8-10.8)
[2025-03-01 06:24] LABS: ALKALINE PHOSPHATASE 48 U/L (46-116); BUN 7 mg/dl (9-23); CHLORIDE 103 mmol/L (98-107); POTASSIUM 3.8 mmol/L (3.4-5.1); SGPT/ALT 150 U/L (5-49); TOTAL PROTEIN 6.3 gm/dL (6.0-8.0)
[2025-03-01] MEDS ORDERED: LISINOPRIL 10 MG TAB PO SCH (10:00)
[2025-03-01] MEDS ORDERED: NORETHINDRONE PO SCH (10:00)
[2025-03-01] MEDS ORDERED: ETHINYL ESTRADIOL PO SCH (10:00)
[2025-03-01] MEDS ORDERED: Lactated Ringer's Solution 1,000 ML IV ONE (10:37)
[2025-03-01] MEDS ORDERED: ACETAMINOPHEN 100 ML IV ONE (10:37)
[2025-03-01] MEDS ORDERED: BUPivacaine 0.5% 30 ML IV ONE (10:43)
[2025-03-01] MEDS ORDERED: HYDROmorphONE Hydrochloride 0.5 MG/0.5 ML SYRINGE IV PRN (11:50)
[2025-03-01] MEDS ORDERED: HYDROmorphONE Hydrochloride 0.5 MG/0.5 ML SYRINGE ONE ×2 (12:13→12:31)
[2025-03-01] MEDS ORDERED: PROPOFOL 200 MG/20 ML VIAL IV ONE (12:53)
[2025-03-01] MEDS ORDERED: Phenylephrine Hydrochloride 1 MG/10 ML SYRINGE IV ONE (12:53)
[2025-03-01] MEDS ORDERED: SEVOFLURANE 250 ML BOT INH ONE (12:53)
[2025-03-01] MEDS ORDERED: Ondansetron Hydrochloride 4 MG/2 ML VIAL IV ONE (12:53)
[2025-03-01] MEDS ORDERED: Lidocaine Hydrochloride 2% 5 ML SDV IM ONE (12:53)
[2025-03-01] MEDS ORDERED: Succinylcholine Chloride 200 MG/10 ML SYRINGE IV ONE (12:53)
[2025-03-01] MEDS ORDERED: fentaNYL CITRATE 100 MCG/2 ML VIAL IV ONE (12:53)
[2025-03-01] MEDS ORDERED: Dexamethasone Sodium Phospha 4 MG/ML VIAL IV ONE (12:53)
[2025-03-01] MEDS ORDERED: SUGAMMADEX SODIUM 200 MG/2 ML VIAL IV ONE (12:53)
[2025-03-01] MEDS ORDERED: Esmolol Hydrochloride 100 MG/10 ML VIAL IV ONE (12:53)
[2025-03-01] MEDS ORDERED: ROCURONIUM BROMIDE 50 MG/5 ML SYRINGE IV ONE (12:53)
== END 2025-03-01 15:56 | disposition home or self-care (01) | DRG 421 ==
LOC: ED 01:53 → EDHOLD 07:29 → 5E 07:29
PROVIDERS: Internal Medicine; Surgery; ADMIT Internal Medicine; ATTEND Internal Medicine
PROC: 0F904ZX Drainage of Liver, Percutaneous Endoscopic Approach, Diagnostic (ICD-10-PCS; principal; 2025-03-01)
PROC: 0FB04ZX Excision of Liver, Percutaneous Endoscopic Approach, Diagnostic (ICD-10-PCS; 2025-03-01)
DX: K76.89 Other specified diseases of liver (principal); R18.8 Other ascites; Z68.43 Body mass index [BMI] 50.0-59.9, adult; K76.0 Fatty (change of) liver, not elsewhere classified; F17.210 Nicotine dependence, cigarettes, uncomplicated; R74.01 Elevation of levels of liver transaminase levels; D75.839 Thrombocytosis, unspecified; K21.9 Gastro-esophageal reflux disease without esophagitis; I10 Essential (primary) hypertension; J45.20 Mild intermittent asthma, uncomplicated; Z88.0 Allergy status to penicillin; Z88.8 Allergy status to other drugs, medicaments and biological substances; Z82.49 Family history of ischemic heart disease and other diseases of the circulatory system; Z79.899 Other long term (current) drug therapy